=== PATIENT | male | born 1960 | race Asian ===

== ENCOUNTER 2020-10-10 10:53 | Outpatient (RCR) | payer BC, SELFPAY ==
[2020-10-10 11:05] VITALS: BMI 19.7
[2020-10-10 11:12] VITALS: BMI 19.7
== END 2020-12-26 09:16 | disposition home or self-care (01) ==
LOC: ANHDMC 10:53
PROVIDERS: PCP Physician Assistant; Referring Provider Physician Assistant; Visit Provider Physician Assistant
DX: R63.4 Abnormal weight loss (principal); F41.9 Anxiety disorder, unspecified; Z71.3 Dietary counseling and surveillance
CPT/HCPCS: 97802

== ENCOUNTER 2022-07-08 07:36 | Outpatient (CLI) | payer BC, SELFPAY ==
--- NOTE | 2022-07-08 07:44 | ECHO_ITS ---
Patient Info Name: Helen Hill Age: 61 years : 1960 Gender: Male Ht: 68 in Wt: 130 lbs BSA: 1.68 m2 HR: 73 bpm BP: 163 / 100 mmHg Technical Quality: Fair Exam Date: 07/08/2022 7:58 AM Exam Location: [facility] Patient Status: Outpatient Admit Date: 07/08/2022 Staff Ordering Physician: Rambo Coffman MD Compatibility Test Engineer: Hillary Hercules RDCS Attending Provider: Rambo Coffman MD Referring Physician: Meghna STALLINGS; Exam Type: CA echo doppler color flow Study Info Indications R01.0 - Benign and innocent cardiac murmurs Complete two-dimensional, color flow and Doppler transthoracic echocardiogram is performed. Summary 1. Complete two-dimensional, color flow and Doppler transthoracic echocardiogram is performed. 2. Left ventricular chamber dimension is mildly enlarged. 3. Left ventricular systolic function is moderately reduced, estimated at 40-45%. 4. The left ventricular diastolic function is grade I diastolic dysfunction. 5. E/e' 11 is mildly elevated. 6. Global longitudinal strain is abnormal at -11.9%. 7. Left atrial chamber dimension is moderately enlarged. 8. There is mild aortic valve sclerosis. 9. No pulmonary hypertension, estimated pulmonary arterial systolic pressure is 30 mmHg. Left Ventricle E/e' 11 is mildly elevated. Global longitudinal strain is abnormal at -11.9%. Left ventricular chamber dimension is mildly enlarged. Left ventricular systolic function is moderately reduced, estimated at 40-45%. The left ventricular diastolic function is grade I diastolic dysfunction. Right Ventricle Right ventricular chamber dimension is normal. Right ventricular systolic function is normal. Left Atria Left atrial chamber dimension is moderately enlarged. Right Atria Right atrial chamber dimension is normal. Aortic Valve The aortic valve is trileaflet. There is mild aortic valve sclerosis. There is no aortic valve stenosis. There is no aortic valve regurgitation. Pulmonic Valve There is no pulmonic regurgitation. Mitral Valve There is no mitral valve stenosis. There is no mitral valve regurgitation. Tricuspid Valve There is no tricuspid valve regurgitation. No pulmonary hypertension, estimated pulmonary arterial systolic pressure is 30 mmHg. Pericardium/Pleural There is no pericardial effusion. Inferior Vena Cava Normal inferior vena cava with >50% collapse upon inspiration consistent with normal right atrial pressure, 5 mmHg. Aorta The aortic root size at the sinus of Valsalva is normal. Left Ventricular Outflow Tract Name Value Normal LVOT 2D LVOT Diameter 2.0 cm LVOT Doppler LVOT Peak Gradient 4 mmHg LVOT Mean Gradient 2 mmHg LVOT VTI 19 cm LVOT VTI/AV VTI Ratio 0.8 LVOT Stroke Volume 57 ml LVOT CO 4.7 l/min LVOT CI 2.8 l/min/m2 Pulmonic Valve
== END 2022-07-08 07:37 | disposition home or self-care (01) ==
PROVIDERS: PCP Family Medicine; Visit Provider Family Medicine
DX: R01.1 Cardiac murmur, unspecified (principal)
CPT/HCPCS: 93306

== ENCOUNTER 2023-06-18 02:00 | Day surgery (SDC) | payer BC, SELFPAY ==
[2023-05-22 12:15] VITALS: BMI 21.2
--- NOTE | 2023-06-16 12:21 | SUR.PREOP ---
Patient called regarding upcoming procedure. Reviewed preop instructions, appointment times, and procedure prep.
--- NOTE | 2023-06-17 14:56 | PM.HPGS ---
History of Present Illness History of Present Illness Consent: Risks, benefits, and alternatives have been discussed and questions answered. Patient agrees to proceed with procedure. Chief complaint: hx of colon ca,hx colon polyps, Narrative: Helen Hill is a 62 year old male Who was referred for colon cancer screening. His last colonoscopy was just over 5 years ago. He has a history of having carcinoma of the colon for which he has had a right colectomy Almost 20 years ago. Review of Systems Review of Systems: All systems reviewed & are unremarkable except as noted in HPI and below PMFSH Past Medical History Medical History Abnormal fasting glucose (03/27/22) fasting glucose 105 on 03/27/2022. Fasting glucose 93 with hemoglobin A1c 5.4 on 09/04/2022. fasting glucose 96 with hemoglobin A1c 5.5 on 04/23/2023. Abnormal serum iron level (03/27/22) iron 187 with 61% saturation and ferritin 52 03/27/2022 with hemoglobin 13.8. Iron normal at 72 with 22% saturation and ferritin 37 with hemoglobin 13.4 on 09/04/2022. Iron 60 with 19% saturation and ferritin 43 with hemoglobin 14.0 on 04/23/2023. BMI 20.0-20.9, adult Body mass index (BMI) less than or equal to 19 in adult Encounter for medical examination to establish care Hemorrhoids History of colon cancer Right hemicolectomy 10/05/2007. colonoscopy 2018 with polyp with recheck in [address] Sampson. Newly recognized murmur (04/03/22) Grade 2/6 LOUISE with click. Echocardiogram with no significant valvular problems on 07/08/2022 with decreased systolic function with ejection fraction of 40-45% and grade 1 diastolic dysfunction with mild left ventricular enlargement and moderate left atrial enlargement. Prostate cancer screening PSA 1.07 on 03/27/2022. PSA 1.02 on 04/23/2023. Seasonal allergies Tinea cruris Vitamin D deficiency Wellness examination Surgical History Surgical History History of colonoscopy 2006 History of colonoscopy with polypectomy colonoscopy with polyp 2018. Family History Family History Mother Cerebrovascular accident Father Carcinoma of colon Social History Social History Smoking status: Never smoker Alcohol intake: current Drinks per week: 2 Alcohol use details: Beer - Occasionally Substance use: never Substance use type: does not use Lack of Transportation: No Lack of Food: Never True Current Housing: I Have Housing Concerned About Future Housing: No Difficulty Paying Gas/Electric Bills: No Difficulty Paying for Meds: No Currently Unemployed: No Education: Trade/Vocational Certificate Difficulty w/ Childcare or Family Care: No Living arrangements: with family Spiritual care concerns: No Meds Home Medications and Allergies Home Medications Medication Instructions Recorded Confirmed Type cholecalciferol (vitamin D3) 50 4,000 unit PO DAILY 04/03/22 06/18/23 History mcg (2,000 unit) capsule hydrocortisone 2.5 % topical cream 1 applic RECTAL BID PRN 04/15/23 06/18/23 Rx with perineal applicator hemorrhoids #30 grams (Anusol-HC) Allergies Allergy/AdvReac Type Severity Reaction Status Date / Time No Known Allergies Allergy Verified 06/18/23 07:00 Exam Resp: Auscultation: clear to auscultation bilaterally Cardio: Rate: regular rate Rhythm: regular rhythm GI: GI Palp: Yes Soft to palpation and No Tenderness to palpation present (GI) Assessment and Plan Assessment and plan (1) History of colon cancer: Code(s): Z85.038 - Personal history of other malignant neoplasm of large intestine Status: Acute Assessment and Plan: Colonoscopy with possible biopsy or polypectomy or cautery or injection of substances.
[2023-06-18 07:01] VITALS: BP 108/70; PULSE 76; RESP 16; TEMP 35.8; O2SAT 100; BMI 19.3
[2023-06-18] MEDS: LACTATED RINGERS 1,000 ML 150 ML IV CONT (07:08)
--- NOTE | 2023-06-18 08:09 | WPDANESEPPF ---
Anes - Initial Pre Proc Eval Procedure: Operation Date: 06/18/23 08:30 Proposed Procedures p Colonoscopy - Nas Mcelroy MD Date/Time: 06/18/23 08:09 Surgeon: Nas Mcelroy MD Pre Op Diagnosis: hx of colon ca,hx colon polyps, Patient Data Age: 62 Gender: M Height: 1.7 m Weight: 55.8 kg Last Vital Signs Temp 96.5 F L 06/18/23 07:01 Pulse 76 06/18/23 07:01 Resp 16 06/18/23 07:01 BP 108/70 06/18/23 07:01 Pulse Ox 100 06/18/23 07:01 O2 Del Method Room Air 06/18/23 07:01 Allergies Allergy/AdvReac Type Severity Reaction Status Date / Time No Known Allergies Allergy Verified 06/18/23 07:00 Home Medications Medication Instructions Recorded Confirmed Type cholecalciferol (vitamin D3) 50 4,000 unit PO DAILY 04/03/22 06/18/23 History mcg (2,000 unit) capsule hydrocortisone 2.5 % topical cream 1 applic RECTAL BID PRN 04/15/23 06/18/23 Rx with perineal applicator hemorrhoids #30 grams (Anusol-HC) Patient hx anesthesia problems: none Family hx anesthesia problems: none Results Review: All pre-operative results and documents have been reviewed as part of the pre-operative evaluation. [facility] Past Medical History Medical History Abnormal fasting glucose (03/27/22) fasting glucose 105 on 03/27/2022. Fasting glucose 93 with hemoglobin A1c 5.4 on 09/04/2022. fasting glucose 96 with hemoglobin A1c 5.5 on 04/23/2023. Abnormal serum iron level (03/27/22) iron 187 with 61% saturation and ferritin 52 03/27/2022 with hemoglobin 13.8. Iron normal at 72 with 22% saturation and ferritin 37 with hemoglobin 13.4 on 09/04/2022. Iron 60 with 19% saturation and ferritin 43 with hemoglobin 14.0 on 04/23/2023. BMI 20.0-20.9, adult Body mass index (BMI) less than or equal to 19 in adult Encounter for medical examination to establish care Hemorrhoids History of colon cancer Right hemicolectomy 10/05/2007. colonoscopy 2018 with polyp with recheck in [address] Sampson. Newly recognized murmur (04/03/22) Grade 2/6 LOUISE with click. Echocardiogram with no significant valvular problems on 07/08/2022 with decreased systolic function with ejection fraction of 40-45% and grade 1 diastolic dysfunction with mild left ventricular enlargement and moderate left atrial enlargement. Prostate cancer screening PSA 1.07 on 03/27/2022. PSA 1.02 on 04/23/2023. Seasonal allergies Tinea cruris Vitamin D deficiency Wellness examination Surgical History Surgical History History of colonoscopy 2006 History of colonoscopy with polypectomy colonoscopy with polyp 2018. Family History Family History Mother Cerebrovascular accident Father Carcinoma of colon Social History Social History Smoking status: Never smoker Alcohol intake: current Drinks per week: 2 Alcohol use details: Beer - Occasionally Substance use: never Substance use type: does not use Lack of Transportation: No Lack of Food: Never True Current Housing: I Have Housing Concerned About Future Housing: No Difficulty Paying Gas/Electric Bills: No Difficulty Paying for Meds: No Currently Unemployed: No Education: Trade/Vocational Certificate Difficulty w/ Childcare or Family Care: No Living arrangements: with family Spiritual care concerns: No Anes - Eval Final PreProcedure Day of Procedure 06/18/23 08:09 Patient weight: normal Heart: regular rate and rhythm Lungs: clear to auscultation Airway: Mallampati scale class II Neurological: alert and oriented Last oral intake: >/= 8 hours ASA classification: III Emergent: no Anesthetic plan: proceed Anesthesia type and monitoring: general GIVS and standard monitoring Results Review: All pre-operative results
[2023-06-18 08:39] VITALS: BP 102/50; PULSE 60; RESP 19; O2SAT 99
[2023-06-18 08:49] VITALS: BP 100/84; PULSE 61; RESP 26; O2SAT 100
[2023-06-18 08:59] VITALS: BP 77/53; PULSE 64; RESP 18; O2SAT 100
[2023-06-18 09:09] VITALS: BP 99/62; PULSE 60; RESP 19; O2SAT 100
== END 2023-06-18 09:13 | disposition home or self-care (01) ==
PROVIDERS: PCP Family Medicine; Visit Provider Internal Medicine Gastroenterology
PROC: 0DJD8ZZ Inspection of Lower Intestinal Tract, Via Natural or Artificial Opening Endoscopic (ICD-10-PCS; CPT 45378; principal; 2023-06-18 08:30)
DX: Z12.11 Encounter for screening for malignant neoplasm of colon (principal); K64.8 Other hemorrhoids; Z85.038 Personal history of other malignant neoplasm of large intestine; Z98.0 Intestinal bypass and anastomosis status; Z90.49 Acquired absence of other specified parts of digestive tract
CPT/HCPCS: 45378; J2371; J2704; J7120

== ENCOUNTER 2024-08-27 19:54 | Inpatient (IN) | payer OTHER, SELFPAY ==
[2024-08-27] VITALS (13 sets, daily range): BP systolic 134–185; BP diastolic 93–143; PULSE 101–113; RESP 16–24; TEMP 36.2; O2SAT 93–98
--- NOTE | ~2024-08-27 | XR_ITS ---
EXAMINATION: XR chest 1V portable DATE: 08/30/2024 06:08 INDICATION: Pleural effusion. TECHNIQUE: A single frontal view of the chest was obtained. COMPARISON: Chest CT 08/27/2024 FINDINGS: There is mild scarring at the lung apices. A calcified right lung nodule is consistent with old granulomatous disease. There is a small right pleural effusion. No pneumothorax. Cardiomegaly is noted. IMPRESSION: 1. Small right pleural effusion. 2. Cardiomegaly. Reviewed, dictated and finalized at location A.
--- NOTE | ~2024-08-27 | CT_ITS ---
EXAMINATION: CTA chest PE protocol DATE: 08/27/2024 21:27 CDT INDICATION: Shortness of breath TECHNIQUE: Computed tomographic angiography (CTA) of the chest was performed with 100 mL Omnipaque-35 0 intravenous contrast. The dose-length product was 211.11 mGy-cm. Maximum intensity projection 3D-re constructions of the aorta and other arteries were constructed by the technologist on a separate work station. COMPARISON: None. FINDINGS/OBSERVATIONS: PULMONARY ARTERIES: No filling defect is identified within the main or proximal pulmonary artery. The main pulmonary artery is significantly enlarged. THORACIC AORTA: No aneurysmal dilatation or dissection is present. The great vessels are intact LUNGS: Large right-sided pleural effusion with patchy opacification of the entirety of the left lower lobe and portions of the left upper lobe consistent with pulmonary vascular congestion. MEDIASTINUM: No morphologically suspicious or pathologically enlarged lymph nodes are identified with in the mediastinum or bilateral axilla. BONES OF THE CHEST: No acute fracture. No significant degenerative disease. No lytic or blastic lesions. HEART: The heart is enlarged, without pericardial effusion. IMPRESSION: No pulmonary embolus. No thoracic aortic dissection. Findings consistent with pulmonary hypertension Large right-sided pleural effusion encompassing nearly the entirety of the right hemithorax. Remaining pulmonary parenchyma demonstrates findings with significant pulmonary edema. Reviewed, dictated and finalized at location A. IMPRESSION: No pulmonary embolus. No thoracic aortic dissection. Findings consistent with pulmonary hypertension Large right-sided pleural effusion encompassing nearly the entirety of the righ t hemithorax. Remaining pulmonary parenchyma demonstrates findings with significant pulmonary edema.
--- OUTSIDE RECORDS SUMMARY | 2024-08-27 19:57 | XMS_ITS | Clinical Summary ---
Author Organization [facility] Address [address] [place] [address] Care Team Providers Care Audit Specialist Name Role Phone Rambo Coffman MD Primary Care Provider [phone] Source Comments [facility],non-owned Affiliates and Associated Physician Practices is amultiple site organization consisting of ambulatory clinics and hospital sitesin [place] and [place]. This disclosure is being madepursuant to the Care Everywhere program and may not contain all information available regarding this patient. Last updated 18.[facility] Allergies No known active allergies Medications * Be aware that medications may not be up to date on this document. Alwaysverify current medications with the patient. Medication Sig Dispensed Refills Start Date End Date Status acetaminophen (TYLENOL) 325 MG tablet Take 325 mg by mouth every 4 hours as needed. Maximum allowable Acetaminophen amount = 4 Grams (4000 mg) / 24 hours. Active Loratadine-Pseudoep hedrine (CLARITIN-D 24 HOUR PO) Take 1 Tab by mouth. Act vick econazole nitrate (SPECTAZOLE) 1 % cream Apply to affected area as needed 5 08/20/2016 Active bisacodyl EC (DULCOLAX) 5 MG tabletIndications:S creen for colon cancer,History of colon cancer Take 2 Tabs by mouth as directed for 1 dose 2 Tab 10/13/2016 Active Active Problems Problem Noted Date Diagnosed Date History of colon cancer 08/03/2013 Family History Medical History Relation Name Comments Non-contributory Mother Relation Name Status Comments Brother 2 Brothers Alive Father Mother Alive Sister 4 Sisters Alive Social History Tobacco Use Types Packs/Day Years Used Date Smoking Tobacco: Never Alcohol Use Standard Drinks/Week Comments Yes 0 (1 standard drink = 0.6 oz pur e alcohol) Occassional, socially Sex and Gender Information Value Date Recorded Sex Assigned at Not on file Gender Identity Not on file Sexual Orientation Not on file Last Filed Vital Signs Vital Sign Reading Time Taken Comments Blood Pressure 131/68 10/11/2016 1:56 PM CDT Pulse 73 10/11/2016 1:56 PM CDT Temperature 36.3 C (97.4 F) 10/11/2016 1:56 PM CDT Respiratory Rate 16 08/08/2010 12:2 8 PM 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 [employer] Oxygen Saturation - - Inhaled Oxygen Concentration - - Weight 61.6 kg (135 lb 12.8 oz) 10/11/2016 1:56 PM CDT Height 172.7 cm (5' 8 ) 10/11/2016 1:56 PM CDT Body Mass Index 20.65 10/11/2016 1:56 PM CDT Plan of Treatment Health Maintenance Due Date Last Done Comments COLOGUARD (AGES 45-75) - COL ON CA SCREENING 1960 COLON MONITORING 1960 COLONOSCOPY - COLON CA SCREENING 1960 CT COLONOGRAPHY - COLON CA SCREENING 1960 Colorectal Cancer Screening 1960 FIT - COLON CA SCREENING 1960 FLEX SIG - COLON CA SCREENING 1960 LIPID TESTING 1960 HIV SCREENING 1976 HEPATITIS C SCREENING 08/25/1979 DTAP/TDAP/TD VACCINES (1 - Tdap) 1980 PNEUMOCOCCAL VACCINE 50+ (1 of 1 - PCV) 08/30/2011 ZOSTER VACCINE (1 of 2) 08/30/2011 COVID-19 VACCINE ( - 2023-2 5 season) 2024 INFLUENZA VACCINE (#1) 2024 DEPRESSION SCREENING 06/09/2024 Respiratory Syncytial Virus (RSV) Vaccine Pt: or over 60 yrs (1 - 1-dose 75+ series) 2036 HEPATITIS B VACCINE Aged Out No longe r eligible based on patient's age to complete this topic HIB VACCINE Aged Out No longer eligi ble based on patient's age to complete this topic HPV VACCINE Aged Out No longer eligi ble based on patient's age to complete this topic MENINGOCOCCAL (Group B) VACC INE SHARED DECISION-MAKING Aged Out No longer eligibl e based on patient's age to complete this topic MENINGOCOCCAL GROUPS A/C/Y/W VACCINE Aged Out No longer eligible b ased on patient's age to complete this topic PNEUMOCOCCAL VACCINE Aged Out No long er eligible based on patient's age to complete this topic Care Teams Audit Specialist Relationship Specialty Start Date End Date Rambo Coffman MD PCP - General Family Medicine 10/11/16
--- NOTE | 2024-08-27 20:22 | ECG_ITS ---
Test Date: 2024-08-27 20:55:08 Measurements Intervals [place] Rate: 104 P: 66 SC: 154 QRS: 73 QRSD: 93 T: 113 QT: 354 QTc: 467 Interpretive Statements SINUS TACHYCARDIA LEFT ATRIAL ENLARGEMENT [-0.15mV P-WAVE IN V1/V2] LEFT VENTRICULAR HYPERTROPHY AND ST-T CHANGE [VOLTAGE CRITERIA PLUS ST/T ABNORMALITY] No previous ECG available for comparison Electronically Signed On 08-28-2024 17:31:31 CDT by Jacqueline Mabry M.D.
--- OUTSIDE RECORDS SUMMARY | 2024-08-27 20:29 | XMS_ITS | Clinical Summary ---
Author Organization [facility] Address [address] [place] [address] Care Team Providers Care Relief Charge Nurse Name Role Phone Rambo Coffman MD Primary Care Provider [phone] Source Comments [facility],non-owned Affiliates and Associated Physician Practices is amultiple site organization consisting of ambulatory clinics and hospital sitesin [place], [place], [place] and [place]. This disclosure is being madepursuant to the Care Everywhere program and may not contain all information available regarding this patient. 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
[2024-08-27 20:43] LABS: Basophils Absolute Auto 0.1 K/mm3 (0.0-0.1); Basophils Percent Auto 0.7 % (0.2-1.2); Eosinophils Absolute Auto 0.5 K/mm3 (0-0.3); Eosinophils Percent Auto 6.6 % (0-4.4); Hematocrit 42.3 % (42.0-52.0); Hemoglobin 13.6 g/dL (14.0-18.0); Immature Granulocyte Absolute 0.01 K/mm3 (0.00-0.031); Immature Granulocyte Percent A 0.1 % (0-0.5); Lymphocytes Absolute Auto 1.16 K/mm3 (0.9-3.2); Lymphocytes Percent Auto 15.9 % (18.3-44.2); Mean Corpuscular HGB Conc 32.2 g/dl (32-36); Mean Corpuscular Hemoglobin 29.4 pg (26-34); Mean Corpuscular Volume 91.6 fl (80-100); Mean Platelet Volume 10.5 fl (7.4-10.4); Monocytes Absolute Auto 0.6 K/mm3 (0.1-0.6); Monocytes Percent Auto 8.5 % (2.6-8.5); Neutrophils Percent Auto 68.2 % (45.5-73.1); Platelet Count Result 216 k/mm3 (150-375); Red Blood Count 4.62 M/mm3 (4.6-6.20); Red Cell Distribution Width 14.2 % (11.5-14.5); White Blood Count 7.3 K/mm3 (4.5-10.0)
[2024-08-27 20:52] LABS: Lactic Acid Reflex 1.1 mmol/L (0.7-2.0)
[2024-08-27 20:53] LABS: Alanine Aminotransferase 41 U/L (6-50); Alkaline Phosphatase 77 U/L (38-126); Anion Gap 8 mmol/L (4-12); Aspartate Amino Transferase 41 U/L (17-59); Bilirubin,Total 0.7 mg/dL (0.2-1.3); Blood Urea Nitrogen 22 mg/dL (9-20); Carbon Dioxide 27 mmol/L (22-30); Chloride 103 mmol/L (98-107); Estimated CRCL calculation 51 ml/min; Estimated Glomerular Filt Rate > 60; Glucose 102 mg/dL (65-110); Lipase 308 U/L (23-300); Potassium 4.3 mmol/L (3.4-5.0); Sodium 138 mmol/L (137-145)
[2024-08-27 20:59] LABS: INR 1.1; Prothrombin Time 14.1 Seconds (11.1-14.7)
[2024-08-27 21:00] LABS: Partial Thromboplastin Time 37.5 Seconds (22.3-36.8)
[2024-08-27 21:06] LABS: NT Pro B Type Natriuretic Pept 3520 pg/mL (19.9-100); Troponin I 0.037 ng/mL (0.000-0.034)
[2024-08-27 21:19] LABS: Influenza A QL RT-PCR Negative (Negative); Influenza B QL RT-PCR Negative (Negative); RSV RNA, RT-PCR Negative (Negative); SARS-CoV-2 RNA PCR Negative (Negative)
[2024-08-27 22:37] LABS: Add Urine Microscopic? NO; Appearance Urine Clear (Clear); Bilirubin Urine Negative (Negative); Blood Urine Negative (Negative); Color Urine Yellow (Yellow); Glucose Urine UA Negative (Negative); Ketones Urine 1+ mg/dL (Negative); Leukocyte Esterase Ur Negative LEU/UL (Negative); Nitrate Urine Negative (Negative); Protein Urine Negative (Negative); Specific Grav Ur > 1.045 (1.001-1.035); Urobilinogen Urine 0.2 mg/dL (<2.0); pH Urine 5.5 (5.0-9.0)
--- NOTE | 2024-08-27 22:44 | ED.GENADULT ---
HPI - General Adult General Chief complaint: Shortness of Breath/Dyspnea Stated complaint: From UC with cough, R Pleural Effusion Time Seen by Provider: 08/27/24 20:12 History of Present Illness HPI narrative: Patient is a 7-year-old gentleman presents emergency department with chief complaint of cough congestion patient has been having a hard time breathing patient has prior history of colon cancer also does have history of congestive heart failure the patient had a chest x-ray that showed a pleural effusion and they were unsure if EKG was abnormal and sent the patient emergency department Related Data Home Medications ?Medication ?Instructions ?Recorded ?Confirmed ?Last Taken ?Type cholecalciferol (vitamin D3) 50 4,000 unit PO DAILY 04/03/22 06/18/23 Unknown History mcg (2,000 unit) capsule Allergies Allergy/AdvReac Type Severity Reaction Status Date / Time No Known Allergies Allergy Verified 08/27/24 19:56 Review of Systems Review of Systems: A 10 system review of systems was completed on the patient and is negative except for what is stated in the HPI. Nursing and ancillary documentation was reviewed. [facility] Past Medical History Medical History Hemorrhoids Body mass index (BMI) less than or equal to 19 in adult Tinea cruris Abnormal fasting glucose (03/27/22) fasting glucose 105 on 03/27/2022. Fasting glucose 93 with hemoglobin A1c 5.4 on 09/04/2022. fasting glucose 96 with hemoglobin A1c 5.5 on 04/23/2023. Abnormal serum iron level (03/27/22) iron 187 with 61% saturation and ferritin 52 03/27/2022 with hemoglobin 13.8. Iron normal at 72 with 22% saturation and ferritin 37 with hemoglobin 13.4 on 09/04/2022. Iron 60 with 19% saturation and ferritin 43 with hemoglobin 14.0 on 04/23/2023. Newly recognized murmur (04/03/22) Grade 2/6 LOUISE with click. Echocardiogram with no significant valvular problems on 07/08/2022 with decreased systolic function with ejection fraction of 40-45% and grade 1 diastolic dysfunction with mild left ventricular enlargement and moderate left atrial enlargement. BMI 20.0-20.9, adult Encounter for medical examination to establish care Prostate cancer screening PSA 1.07 on 03/27/2022. PSA 1.02 on 04/23/2023. History of colon cancer Right hemicolectomy 10/05/2007. colonoscopy 2018 with polyp with recheck in [address] Sampson. colonoscopy 06/18/2023 with ileocecal anastomosis and internal hemorrhoids with recheck in 5 years Vitamin D deficiency Seasonal allergies Wellness examination Surgical History Surgical History History of colonoscopy with polypectomy colonoscopy with polyp 2018. History of colonoscopy 2006 Family History Family History Mother Cerebrovascular accident Father Carcinoma of colon Social History Social History Smoking status: Never smoker Alcohol intake: current Drinks per week: 2 Alcohol use details: Beer - Occasionally Substance use: never Substance use type: does not use Lack of Transportation: No Lack of Food: Never True Current Housing: I Have Housing Concerned About Future Housing: No Difficulty Paying Gas/Electric Bills: No Difficulty Paying for Meds: No Currently Unemployed: No Education: Trade/Vocational Certificate Difficulty w/ Childcare or Family Care: No Living arrangements: with family Spiritual care concerns: No Exam Narrative: GENERAL: Well-appearing, well-nourished, and in no acute distress. HEAD: Normocephalic, atraumatic. EYES: PERRLA and EOMI. ENT: Nares clear, no rhinorrhea or epistaxis. Mucous membranes moist. NECK: Supple. CHEST: Clear to auscultation. No respiratory distress. HEART: Regular rate and rhythm. No murmur heard. Normal peripheral pulses. ABDOMEN: Soft, nontender, nondistended, normal active bowel sounds. EXTREMITIES: Normal range of motion. No edema. SKIN: Warm, dry, no rash. NEURO: No focal deficits. Alert and oriented x3. PSYCH: Normal mood and affect. Course Vital Signs Vital signs: Vital Signs Temperature 36.2 C L 08/27/24 19:57 Pulse Rate 104 H 08/27/24 19:57 Respiratory Rate 16 08/27/24 19:57 Blood Pressure 134/100 H 08/27/24 19:57 Pulse Oximetry 97 08/27/24 19:57 Oxygen Delivery Room Air 08/27/24 19:57 Temperature 36.2 C L 08/27/24 19:57 Pulse Rate 104 H 08/27/24 19:57 Respiratory Rate 16 08/27/24 19:57 Blood Pressure 134/100 H 08/27/24 19:57 Pulse Oximetry 97 08/27/24 21:00 Oxygen Delivery Room Air 08/27/24 21:00 Medical Decision Making MDM Narrative Medical decision making narrative: Differential diagnosis includes pneumonia, CHF, fluid overload, pleural effusion, ACS EKG showed no acute ischemic changes initial troponin was slightly elevated BNP was [address] showed no evidence of PE but did show a large pleural effusion and infiltrates patient will be started on antibiotics started on diuresis and will be admitted to the IMU Vital Signs Vital Signs: Vital Signs Temperature 36.2 C L 08/27/24 19:57 Pulse Rate 104 H 08/27/24 19:57 Respiratory Rate 16 08/27/24 19:57 Blood Pressure 134/100 H 08/27/24 19:57 Pulse Oximetry 97 08/27/24 19:57 Oxygen Delivery Room Air 08/27/24 19:57 Temperature 36.2 C L 08/27/24 19:57 Pulse Rate 104 H 08/27/24 19:57 Respiratory Rate 16 08/27/24 19:57 Blood Pressure 134/100 H 08/27/24 19:57 Pulse Oximetry 97 08/27/24 21:00 Oxygen Delivery Room Air 08/27/24 21:00 Lab Data 08/27/24 20:36 08/27/24 20:36 Labs: Lab Results 08/27/24 08/27/24 Range/Units 20:36 22:27 WBC 7.3 (4.5-10.0) K/mm3 RBC 4.62 (4.6-6.20) M/mm3 Hgb 13.6 L (14.0-18.0) g/dL Hct 42.3 (42.0-52.0) % MCV 91.6 (80-100) fl MCH 29.4 (26-34) pg MCHC 32.2 (32-36) g/dl RDW 14.2 (11.5-14.5) % Plt Count 216 (150-375) k/mm3 MPV 10.5 H (7.4-10.4) fl Immature Gran % (Auto) 0.1 (0-0.5) % Neut % (Auto) 68.2 (45.5-73.1) % Lymph % (Auto) 15.9 L (18.3-44.2) % [place] % (Auto) 8.5 (2.6-8.5) % Eos % (Auto) 6.6 H (0-4.4) % Baso % (Auto) 0.7 (0.2-1.2) % Lymph # (Auto) 1.16 (0.9-3.2) K/mm3 [place] # (Auto) 0.6 (0.1-0.6) K/mm3 Eos # (Auto) 0.5 H (0-0.3) K/mm3 Baso # (Auto) 0.1 (0.0-0.1) K/mm3 Abs Immat Gran (auto) 0.01 (0.00-0.031) K/mm3 Absolute Neuts (auto) 5.0 (1.3-6.7) K/mm3 Absolute Nucleated RBC 0.000 (0.0-0.012) K/mm3 Nucleated RBC % 0.0 (0.0-0.2) % PT 14.1 (11.1-14.7) Seconds INR 1.1 APTT 37.5 H (22.3-36.8) Seconds Sodium 138 (137-145) mmol/L Potassium 4.3 (3.4-5.0) mmol/L Chloride 103 (98-107) mmol/L Carbon Dioxide 27 (22-30) mmol/L Anion Gap 8 (4-12) mmol/L BUN 22 H (9-20) mg/dL Creatinine 1.06 (0.7-1.3) mg/dL Estim Creat Clear Calc 51 ml/min Estimated GFR > 60 (59 - ) Glucose 102 (65-110) mg/dL Lactic Acid 1.1 (0.7-2.0) mmol/L Calcium 9.0 (8.4-10.2) mg/dL Magnesium 2.0 (1.6-2.3) mg/dL Total Bilirubin 0.7 (0.2-1.3) mg/dL AST 41 (17-59) U/L ALT 41 (6-50) U/L Alkaline Phosphatase 77 (38-126) U/L Troponin I 0.037 H* (0.000-0.034) ng/mL NT-Pro-B Natriuret Pep 3520 H (19.9-100) pg/mL Total Protein 8.0 (6.3-8.2) g/dL Albumin 4.0 (3.5-5.1) g/dL Lipase 308 H (23-300) U/L Procalcitonin 0.0 ng/mL Urine Color Pending Urine Appearance Pending Urine pH Pending Ur Specific [place] Pending Urine Protein Pending Urine Glucose (UA) Pending Urine Ketones Pending Ur Blood (Man) Pending Urine Nitrate Pending Urine Bilirubin Pending Urine Urobilinogen Pending Leukocyte Esterase Rfl Pending Influenza A (RT-PCR) Negative (Negative) Influenza B (RT-PCR) Negative (Negative) RSV (RT-PCR) Negative (Negative) SARS-CoV-2 RNA (RT-PCR) Negative (Negative) Discharge Plan Discharge Clinical Impression: Pneumonia, Pleural effusion, Elevated troponin Patient Disposition: Still a Patient Condition: Stable Patient Language: [place] Prescriptions: No Action cholecalciferol (vitamin D3) 50 mcg (2,000 unit) capsule 4,000 unit PO DAILY hydrocortisone [Anusol-HC] 2.5 % cream with perineal applicator 1 applic RECTAL BID PRN (Reason: hemorrhoids) Qty: 30 5RF Follow-up/Referrals: Rambo Coffman MD [Primary Care Provider] - Time of Disposition: 22:47
[2024-08-27 23:52] LABS: Troponin I 0.037 ng/mL (0.000-0.034)
[2024-08-28] VITALS (21 sets, daily range): BP systolic 98–152; BP diastolic 50–94; PULSE 68–103; RESP 14–18; TEMP 36.4–36.8; O2SAT 94–100; BMI 19.0
--- NOTE | 2024-08-28 00:29 | ADMGEN ---
This patient, Helen Hill, was admitted to IMU Room 201-01. Patient/family oriented to hospital policies and general routines including ID bracelet, bed and alarms, visiting hours, pain management, procedures, bathroom and other care routines, personal items, smoking policy, room service/diet, and visiting hours. Information on how to activate the Rapid Response Team has been discussed. Patient/Family are encouraged to report perceived risks to care and to ask questions if they do not understand what they are told or what they should do.
--- NOTE | 2024-08-28 00:30 | PM.IMHP ---
H&P: HPI History of Present Illness Date/Time: 08/28/24 00:30 Chief Complaint: Shortness of breath. Narrative: This is a very pleasant 63-year-old male with a history of heart failure with moderately reduced ejection fraction estimated at 40 45% with grade 1 diastolic dysfunction noted on echocardiogram in June 2022 and remote history of colon cancer who presented to the emergency department via private vehicle from urgent care for evaluation of shortness of breath. 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 He also endorses a cough which is occasionally productive of yellow phlegm, rare palpitations, and mild orthopnea. He has not noticed any swelling and in fact he has lost some weight. Today he went to urgent care where he was found to have a large right-sided pleural effusion and he was directed to the ED. He denies fever, chills, sweats, chest pain, pleuritic pain, lower extremity edema, calf pain, nausea, and vomiting. In the ED: Vital signs on arrival include a temperature of 97.2?, blood pressure 134/100, pulse 104, respiratory 16, SpO2 97% on room air. Labs were significant for WBC count of 7.3, hemoglobin 13.6, BUN 22, creatinine 1.06, troponin 0.037, proBNP 3520, lipase 308. He tested negative negative for flu, RSV, and COVID. Chest CTA was negative for pulmonary embolus and dissection but did show findings consistent with pulmonary hypertension and large right-sided pleural effusion with pulmonary edema. He has been started on diuretics and is being admitted in this setting for further treatment and Cardiology consultation. Review of Systems Review of Systems: 12 systems were reviewed and are negative except for as per HPI. [facility] Past Medical History Medical History Hemorrhoids Body mass index (BMI) less than or equal to 19 in adult Abnormal fasting glucose (03/27/22) fasting glucose 105 on 03/27/2022. Fasting glucose 93 with hemoglobin A1c 5.4 on 09/04/2022. fasting glucose 96 with hemoglobin A1c 5.5 on 04/23/2023. Abnormal serum iron level (03/27/22) iron 187 with 61% saturation and ferritin 52 03/27/2022 with hemoglobin 13.8. Iron normal at 72 with 22% saturation and ferritin 37 with hemoglobin 13.4 on 09/04/2022. Iron 60 with 19% saturation and ferritin 43 with hemoglobin 14.0 on 04/23/2023. Newly recognized murmur (04/03/22) Grade 2/6 LOUISE with click. Echocardiogram with no significant valvular problems on 07/08/2022 with decreased systolic function with ejection fraction of 40-45% and grade 1 diastolic dysfunction with mild left ventricular enlargement and moderate left atrial enlargement. Prostate cancer screening PSA 1.07 on 03/27/2022. PSA 1.02 on 04/23/2023. History of colon cancer Right hemicolectomy 10/05/2007. colonoscopy 2018 with polyp with recheck in [address] Sampson. colonoscopy 06/18/2023 with ileocecal anastomosis and internal hemorrhoids with recheck in 5 years Vitamin D deficiency Seasonal allergies Surgical History Surgical History History of colectomy (09/2007) Right hemicolectomy for colon cancer History of colonoscopy with polypectomy colonoscopy with polyp 2018. History of colonoscopy 2006 Family History Family History Mother Cerebrovascular accident Father Carcinoma of colon Social History Social History Social History: Surrogate medical decision maker: Sandy Hernándezfarzana, spouse. Code status: Full code. Smoking status: Never smoker Alcohol intake: unknown Drinks per week: 2 Alcohol use details: Beer - Occasionally Substance use: unknown Substance use type: does not use Do You Feel Safe in your Home?: Yes Lack of Transportation: No Lack of Food: Never True Current Housing: I Have Housing Concerned About Future Housing: No Difficulty Paying Gas/Electric Bills: No Difficulty Paying for Meds: No Currently Unemployed: No Education: Trade/Vocational Certificate Difficulty w/ Childcare or Family Care: No Living arrangements: with family Spiritual care concerns: No Meds Home Medications and Allergies Home Medications ?Medication ?Instructions ?Recorded ?Confirmed ?Type No Home Medications 08/28/24 08/28/24 History Allergies Allergy/AdvReac Type Severity Reaction Status Date / Time No Known Allergies Allergy Verified 08/27/24 19:56 Vital Signs Vital Signs - 24 hr 08/27/24 19:57 08/27/24 20:30 08/27/24 20:45 Temperature 97.2 F L Pulse Rate 104 H 106 H 106 H Respiratory Rate 16 19 18 Blood Pressure 134/100 H 177/107 H 173/108 H Pulse Oximetry 97 98 97 Oxygen Delivery Room Air 08/27/24 21:00 08/27/24 21:01 08/27/24 21:30 Temperature Pulse Rate 108 H 104 H Respiratory Rate 17 20 Blood Pressure 163/101 H 157/93 H Pulse Oximetry 97 95 94 Oxygen Delivery Room Air 08/27/24 21:46 08/27/24 22:00 08/27/24 22:15 Temperature Pulse Rate 109 H 105 H 113 H Respiratory Rate 20 21 H 19 Blood Pressure 160/103 H 185/143 H 170/103 H Pulse Oximetry 95 98 93 Oxygen Delivery 08/27/24 22:30 08/27/24 23:16 08/27/24 23:30 Temperature Pulse Rate 106 H 101 H 104 H Respiratory Rate 20 16 22 H Blood Pressure 153/98 H 145/96 H 156/103 H Pulse Oximetry 93 95 96 Oxygen Delivery 08/27/24 23:46 08/28/24 00:05 Temperature 98.3 F Pulse Rate 103 H 103 H Respiratory Rate 24 H 16 Blood Pressure 151/93 H 152/94 H Pulse Oximetry 96 94 Oxygen Delivery Exam Narrative: General: Thin, well-developed gentleman sitting up in bed in no acute distress. Weight: 55 kg. BMI: 19.0. HEENT: Normocephalic, atraumatic. PERRL, EOMI. Sclera anicteric. Oral mucosa moist. Oropharynx clear. Neck: Supple. No JVD. Respiratory: Respirations are nonlabored he is speaking full sentences. Lung sounds are significantly diminished on the right with scattered crackles throughout the rest of the lung dorman. Cardiovascular: Regular rate and rhythm with S1-S2 gallop. Gastrointestinal: Abdomen is soft, nontender, and nondistended with positive bowel sounds. Skin: Warm and dry. No rash or lesions on limited exam. Extremities: No cyanosis, clubbing, or edema. Radial and pedal pulses intact. Neurological: Alert. Cranial nerves 2-12 are grossly intact. No gross focal deficits to casual conversation. Psychiatric: Pleasant and cooperative with normal mood and affect. Judgment and insight intact. H&P: Results Labs Labs: Short CBC 08/27/24 Range/Units 20:36 WBC 7.3 (4.5-10.0) K/mm3 Hgb 13.6 L (14.0-18.0) g/dL Hct 42.3 (42.0-52.0) % Plt Count 216 (150-375) k/mm3 BMP 08/27/24 20:36 Sodium 138 Potassium 4.3 Chloride 103 Carbon Dioxide 27 BUN 22 H Creatinine 1.06 Glucose 102 Calcium 9.0 Cardiac Enzymes 08/27/24 08/27/24 Range/Units 20:36 23:14 Troponin I 0.037 H* 0.037 H* (0.000-0.034) ng/mL Liver Function 08/27/24 Range/Units 20:36 Total Bilirubin 0.7 (0.2-1.3) mg/dL AST 41 (17-59) U/L ALT 41 (6-50) U/L Alkaline Phosphatase 77 (38-126) U/L Albumin 4.0 (3.5-5.1) g/dL Urine 08/27/24 Range/Units 22:27 Urine Color Yellow (Yellow) Urine Appearance Clear (Clear) Urine pH 5.5 (5.0-9.0) Ur Specific [place] > 1.045 H (1.001-1.035) Urine Protein Negative (Negative) mg/dL Urine Glucose (UA) Negative (Negative) mg/dL Impressions Chest CTA 08/27/24 21:27 IMPRESSION: No pulmonary embolus. No thoracic aortic dissection. Findings consistent with pulmonary hypertension Large right-sided pleural effusion encompassing nearly the entirety of the right hemithorax. Remaining pulmonary parenchyma demonstrates findings with significant pulmonary edema. Assessment and Plan Assessment and plan (1) Acute exacerbation of congestive heart failure: Code(s): I50.9 - Heart failure, unspecified Status: Acute (2) Pleural effusion on right: Code(s): J90 - Pleural effusion, not elsewhere classified Status: Acute (3) Elevated troponin: Code(s): R79.89 - Other specified abnormal findings of blood chemistry Status: Acute (4) Elevated blood pressure reading: Code(s): R03.0 - Elevated blood-pressure reading, without diagnosis of hypertension Status: Acute Plan The patient presented to the emergency department for evaluation of increasing dyspnea on lesser and lesser exertion over the past couple of weeks as detailed in HPI. Labs, imaging, EKG, and all reports were personally reviewed. Imaging showed a large right-sided pleural effusion and pretty significant pulmonary edema likely due to to systolic CHF exacerbation. Precipitating etiology is not entirely clear but his blood pressures were pretty high on arrival however have improved somewhat. I suspect he will need to be started on antihypertensives. He will be diuresed with close monitoring of volume status, renal function, and electrolytes. Diagnostic and therapeutic right-sided thoracentesis ordered as I do not think diuretics alone will make any meaningful difference in the size of this effusion. Echocardiogram has been ordered. Troponins will be trended to peak. Cardiology has been consulted for further recommendations. Discontinue antibiotics as there is low suspicion for pneumonia. His home medications will be reviewed and resumed as appropriate. Findings and treatment plan were discussed with the patient and his . Questions were solicited and answered to satisfaction. The patient's medical management will be taken over by the hospitalist team in a.m. Quality VTE Prophylaxis VTE prophylaxis: pharmacologic ordered The patient has been admitted under observation status. Hospitalist MIPS Advance Care Plan I have confirmed that the patient's Advanced Care Plan is present, code status is documented, or surrogate decision maker is listed in patient medical record.: Yes Medication Reconciliation I have utilized all available resources to obtain, update and review the patients current medications (includes all prescriptions, OTC, herbals, cannabis, and nutritional supplements).: Yes
--- NOTE | 2024-08-28 00:57 | ECHO_ITS ---
Patient Info Name: Helen Hill Age: 64 years : 1960 Gender: Male Ht: 67 in Wt: 121 lbs BSA: 1.60 m2 HR: 68 bpm BP: 111 / 58 mmHg Heart Rhythm: Sinus Rhythm Technical Quality: Fair Exam Date: 08/28/2024 8:06 AM Exam Location: Echo Lab Patient Status: Inpatient Admit Date: 08/28/2024 Staff Ordering Physician: Dunia Capps PA-C Manager Child: Yue Machuca RDCS Attending Provider: Cadence Jacinto MD Referring Physician: Génesis AVALOS; Exam Type: CA echo doppler color flow Study Info Indications - CHF Complete two-dimensional, color flow and Doppler transthoracic echocardiogram is performed. Summary 1. Left ventricular chamber dimension is moderately enlarged. 2. Left ventricular systolic function is severely reduced, estimated at 20-25%. 3. There is mildly increased left ventricular wall thickness. 4. The left ventricular diastolic function is grade I diastolic dysfunction. 5. Right ventricular chamber dimension is normal. 6. Right ventricular systolic function is normal. 7. Left atrial chamber dimension is moderately enlarged. 8. Right atrial chamber dimension is moderately enlarged. 9. The aortic valve appears to be bicuspid. 10. There is mild mitral valve regurgitation. Left Ventricle Left ventricular chamber dimension is moderately enlarged. Left ventricular systolic function is severely reduced, estimated at 20-25%. There is mildly increased left ventricular wall thickness. The left ventricular diastolic function is grade I diastolic dysfunction. Right Ventricle Right ventricular chamber dimension is normal. Right ventricular systolic function is normal. Left Atria Left atrial chamber dimension is moderately enlarged. Right Atria Right atrial chamber dimension is moderately enlarged. Atrial Septum Intact interatrial septum visualized by color flow imaging. Aortic Valve The aortic valve appears to be bicuspid. There is no aortic valve stenosis. There is no aortic valve regurgitation. There is mild aortic valve calcification. Pulmonic Valve The pulmonic valve is not well visualized. There is trace pulmonic regurgitation. Mitral Valve There is mild mitral valve regurgitation. Tricuspid Valve There is trace tricuspid valve regurgitation. Pericardium/Pleural There is no pericardial effusion. Inferior Vena Cava Normal inferior vena cava with >50% collapse upon inspiration consistent with normal right atrial pressure, 3 mmHg. Aorta The aortic root size at the sinus of Valsalva is normal. Left Ventricular Outflow Tract Name Value Normal LVOT 2D LVOT Diameter 2.0 cm LVOT Doppler LVOT Peak Gradient 3 mmHg LVOT Mean Gradient 1 mmHg LVOT VTI 12 cm LVOT VTI/AV VTI Ratio 0.7 LVOT Stroke Volume 39 ml LVOT CO 3.8 l/min LVOT CI 2.4 l/min/m2 Pulmonic Valve Name Value Normal RVOT Doppler RVOT Peak Gradient 2 mmHg PV Doppler PV Peak Gradient 11 mmHg Mitral Valve Name Value Normal MV Doppler MV Decel [place] 520 cm/s2 MV PHT 43 ms MV Area (PHT) 5.2 cm2 4.0-5.0 MV Diastolic Function MV E Peak Velocity 76 cm/s MV A Peak Velocity 76 cm/s MV E/A 1.0 MV Decel Time 147 ms MV Annular TDI MV E/e' (Septal) 25.4 <=8.0 MV E/e' (Lateral) 26.8 <=8.0 MV E/e' (Average) 26.1 Tricuspid Valve Name Value Normal TV Regurgitation Doppler TR Peak Velocity 197 cm/s TR Peak Gradient 16 mmHg Estimated PAP/RSVP RA Pressure 3 mmHg <=5 PA Systolic Pressure 19 mmHg <36 RV Systolic Pressure 19 mmHg <36 Aortic Valve Name Value Normal AV Doppler AV Peak Velocity 106 cm/s AV Peak Gradient 4 mmHg AV Mean Gradient 3 mmHg AV VTI 19 cm AV Area (Cont Eq VTI) 2.1 cm2 >=3.0 AV Area (Cont Eq Yoni) 2.4 cm2 AV Regurgitation 2D LVOT Area 3.2 cm2 Ventricles Name Value Normal LV Dimensions 2D/MM IVS Diastolic Thickness (2D) 1.0 cm 0.6-1.0 LVID Diastole (2D) 4.4 cm 4.2-5.8 LVIW Diastolic Thickness (2D) 1.1 cm 0.6-1.0 LVID Systole (2D) 3.9 cm 2.5-4.0 LVOT Diameter 2.0 cm LV Mass (2D Cubed) 146.54 g 88.00-224.00 LV Mass Index (2D Cubed) 91 g/m2 49-115 Relative Wall Thickness (2D) 0.48 LV Fractional Shortening/Ejection Fraction 2D/MM LV Fractional Shortening (2D) 7 % 25-43 LV EF (2D Teicholz) 16 % 52-72 LV Diastolic Volume (4C MOD) 127 ml LV EF (4C MOD) 20 % LV Diastolic Volume (2C MOD) 143 ml LV EF (2C MOD) 43 % LV Diastolic Volume (BP MOD) 138 ml 62-150 LV Diastolic Volume Index (BP MOD) 86 ml/m2 34-74 LV Systolic Volume (BP MOD) 96 ml 21-61 LV Systolic Volume Index (BP MOD) 60 ml/m2 11-31 LV EF (BP MOD) 30 % 52-72 LV Diastolic Length (4C) 7.0 cm LV Systolic Length (4C) 6.2 cm LV Stroke Volume (4C MOD) 26 ml Atria Name Value Normal LA Dimensions LA Volume (4C A-L) 34 ml LA Volume (BP A-L) 48 ml RA Dimensions RA Area (4C) 11.1 cm2 <=18.0 Report Signatures
[2024-08-28] MEDS: FUROSEMIDE INJ 100 MG/10 ML VIAL 40 MG IV PUSH (01:03)
[2024-08-28 05:07] LABS: Hematocrit 41.6 % (42.0-52.0); Hemoglobin 13.8 g/dL (14.0-18.0); Mean Corpuscular HGB Conc 33.2 g/dl (32-36); Mean Corpuscular Hemoglobin 29.9 pg (26-34); Mean Corpuscular Volume 90.2 fl (80-100); Mean Platelet Volume 10.8 fl (7.4-10.4); Platelet Count Result 204 k/mm3 (150-375); Red Blood Count 4.61 M/mm3 (4.6-6.20); Red Cell Distribution Width 13.8 % (11.5-14.5); White Blood Count 8.8 K/mm3 (4.5-10.0)
[2024-08-28 05:19] LABS: Albumin Level 3.7 g/dL (3.5-5.1); Cholesterol 194 mg/dL (0-200); Lactate Dehydrogenase 196 U/L (120-246)
[2024-08-28 05:25] LABS: INR 1.1; Prothrombin Time 14.7 Seconds (11.1-14.7)
[2024-08-28 05:29] LABS: Anion Gap 7 mmol/L (4-12); Blood Urea Nitrogen 20 mg/dL (9-20); Calcium 8.6 mg/dL (8.4-10.2); Carbon Dioxide 27 mmol/L (22-30); Chloride 102 mmol/L (98-107); Estimated CRCL calculation 53 ml/min; Estimated Glomerular Filt Rate > 60; Glucose 172 mg/dL (65-110); Magnesium 1.9 mg/dL (1.6-2.3); Potassium 3.7 mmol/L (3.4-5.0); Sodium 136 mmol/L (137-145)
[2024-08-28 05:40] LABS: Troponin I 0.037 ng/mL (0.000-0.034)
[2024-08-28] MEDS: IPRATROPIUM 0.5 MG/ALBUTEROL SULFATE 2.5 MG AMPUL.NEB 3 ML INHALATION ×3 (07:13→19:14)
--- NOTE | 2024-08-28 08:47 | PM.IMPN ---
Progress Note: A&P Assessment and Plan (1) Acute exacerbation of congestive heart failure: Code(s): I50.9 - Heart failure, unspecified Status: Acute (2) Pleural effusion on right: Code(s): J90 - Pleural effusion, not elsewhere classified Status: Acute (3) Elevated troponin: Code(s): R79.89 - Other specified abnormal findings of blood chemistry Status: Acute (4) Elevated blood pressure reading: Code(s): R03.0 - Elevated blood-pressure reading, without diagnosis of hypertension Status: Acute Plan This is a very pleasant 63-year-old male with a history of heart failure with moderately reduced ejection fraction estimated at 40 45% with grade 1 diastolic dysfunction noted on echocardiogram in June 2022 and remote history of colon cancer who presented to the emergency department via private vehicle from urgent care for evaluation of shortness of breath. 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 He also endorses a cough which is occasionally productive of yellow phlegm, rare palpitations, and mild orthopnea. He has not noticed any swelling and in fact he has lost some weight. Today he went to urgent care where he was found to have a large right-sided pleural effusion and he was directed to the ED. He denies fever, chills, sweats, chest pain, pleuritic pain, lower extremity edema, calf pain, nausea, and vomiting. In the ED: Vital signs on arrival include a temperature of 97.2?, blood pressure 134/100, pulse 104, respiratory 16, SpO2 97% on room air. Labs were significant for WBC count of 7.3, hemoglobin 13.6, BUN 22, creatinine 1.06, troponin 0.037, proBNP 3520, lipase 308. He tested negative negative for flu, RSV, and COVID. Chest CTA was negative for pulmonary embolus and dissection but did show findings consistent with pulmonary hypertension and large right-sided pleural effusion with pulmonary edema. He has been started on diuretics and is being admitted in this setting for further treatment. He received ceftriaxone and azithromycin in the ED. however low suspicion for pneumonia and hence antibiotic has been discontinued. Acute on chronic diastolic systolic congestive heart failure EF 40-45% with grade 1 diastolic dysfunction June 2022. Echo. Cardiology consult continue diuresis Right-sided pleural effusion large diagnostic and therapeutic right-sided thoracentesis ordered. TSH is pending procalcitonin is 0 Elevated troponin trended and flat History of colon cancer status post right mohit colectomy and ileocolonic anastomosis DVT prophylaxis Lovenox Code status full code Subjective Date/time seen: 08/28/24 08:47 Interval history: Feels okay. Denies any shortness of breath or chest pain. Minimal cough Review of Systems Review of Systems: All systems reviewed & are unremarkable except as noted in HPI and below Exam Narrative: General: Thin, well-developed gentleman sitting up in bed in no acute distress. HEENT: Normocephalic, atraumatic. PERRL, EOMI. Sclera anicteric. Oral mucosa moist. Oropharynx clear. Neck: Supple. No JVD. Respiratory: Respirations are nonlabored he is speaking full sentences. Lung sounds are significantly diminished on the right with scattered crackles throughout the rest of the lung dorman. Cardiovascular: Regular rate and rhythm with S1-S2. Sounds to have a gallop, difficult for me to distinguish if this is an S3 or wide split S2. Gastrointestinal: Abdomen is soft, nontender, and nondistended with positive bowel sounds. Skin: Warm and dry. No rash or lesions on limited exam. Extremities: No cyanosis, clubbing, or edema. Radial and pedal pulses intact. Neurological: Alert. Cranial nerves 2-12 are grossly intact. No gross focal deficits to casual conversation. Psychiatric: Pleasant and cooperative with normal mood and affect. Judgment and insight intact. Objective Data Vital Signs Vital Signs: Vital Signs - 24 hr 08/27/24 19:57 08/27/24 20:30 08/27/24 20:45 Temperature 97.2 F L Pulse Rate 104 H 106 H 106 H Respiratory Rate 16 19 18 Blood Pressure 134/100 H 177/107 H 173/108 H Pulse Oximetry 97 98 97 Oxygen Delivery Room Air 08/27/24 21:00 08/27/24 21:01 08/27/24 21:30 Temperature Pulse Rate 108 H 104 H Respiratory Rate 17 20 Blood Pressure 163/101 H 157/93 H Pulse Oximetry 97 95 94 Oxygen Delivery Room Air 08/27/24 21:46 08/27/24 22:00 08/27/24 22:15 Temperature Pulse Rate 109 H 105 H 113 H Respiratory Rate 20 21 H 19 Blood Pressure 160/103 H 185/143 H 170/103 H Pulse Oximetry 95 98 93 Oxygen Delivery 08/27/24 22:30 08/27/24 23:16 08/27/24 23:30 Temperature Pulse Rate 106 H 101 H 104 H Respiratory Rate 20 16 22 H Blood Pressure 153/98 H 145/96 H 156/103 H Pulse Oximetry 93 95 96 Oxygen Delivery 08/27/24 23:46 08/28/24 00:05 08/28/24 00:45 Temperature 98.3 F Pulse Rate 103 H 103 H 103 H Respiratory Rate 24 H 16 16 Blood Pressure 151/93 H 152/94 H Pulse Oximetry 96 94 94 Oxygen Delivery Room Air 08/28/24 02:00 08/28/24 04:00 08/28/24 04:00 Temperature 97.8 F Pulse Rate 96 94 85 Respiratory Rate 15 15 Blood Pressure 115/58 L Pulse Oximetry 99 99 Oxygen Delivery Room Air 08/28/24 04:00 08/28/24 06:00 08/28/24 07:13 Temperature Pulse Rate 85 68 Respiratory Rate Blood Pressure Pulse Oximetry 98 Oxygen Delivery Room Air 08/28/24 07:13 08/28/24 07:20 Temperature Pulse Rate 90 93 Respiratory Rate 14 14 Blood Pressure Pulse Oximetry Oxygen Delivery Intake/Output Intake/Output: Intake & Output 08/25/24 08/26/24 08/27/24 08/28/24 23:59 23:59 23:59 23:59 Intake Total 300 Output Total 1900 Balance -1600 Meds/Results Medications: Active Medications Generic Name Dose Route Start Last Admin Trade Name Freq PRN Reason Stop Dose Admin Acetaminophen 650 mg 08/27/24 22:48 Acetaminophen 325 Mg Tablet PO Q4H PRN Mild Pain (1-3) or Fever Albuterol/Ipratropium 3 ml 08/28/24 02:00 08/28/24 07:13 Ipratropium 0.5 Mg/Albuterol Sulfate 2.5 Mg Ampul.Neb 3 Ml INHALATION 3 ml Q6HRT PUSHPA Administration Enoxaparin Sodium 40 mg 08/28/24 09:00 Enoxaparin 40 Mg/0.4 Ml Syringe SUB-Q DAILY PUSHPA Furosemide 40 mg 08/28/24 09:00 Furosemide Inj 40 Mg/4 Ml Vial IV PUSH Q12HR PUSHPA Perflutren Lipid Microsphere 0 ml 08/28/24 00:57 Perflutren Lipid Microspheres 1.5 Ml Vial Diluted To 10 Ml Total Volume IV PUSH 08/31/24 00:57 ONCE PRN adequate visualization Protocol Radiology Results: ITS Impressions Chest CTA 08/27/24 21:27 IMPRESSION: No pulmonary embolus. No thoracic aortic dissection. Findings consistent with pulmonary hypertension Large right-sided pleural effusion encompassing nearly the entirety of the right hemithorax. Remaining pulmonary parenchyma demonstrates findings with significant pulmonary edema. Labs Labs: Laboratory Results - last 24 hr 08/27/24 08/27/24 08/27/24 20:36 22:27 23:14 WBC 7.3 RBC 4.62 Hgb 13.6 L Hct 42.3 MCV 91.6 MCH 29.4 MCHC 32.2 RDW 14.2 Plt Count 216 MPV 10.5 H Immature Gran % (Auto) 0.1 Neut % (Auto) 68.2 Lymph % (Auto) 15.9 L [place] % (Auto) 8.5 Eos % (Auto) 6.6 H Baso % (Auto) 0.7 Lymph # (Auto) 1.16 [place] # (Auto) 0.6 Eos # (Auto) 0.5 H Baso # (Auto) 0.1 Abs Immat Gran (auto) 0.01 Absolute Neuts (auto) 5.0 Absolute Nucleated RBC 0.000 Nucleated RBC % 0.0 PT 14.1 INR 1.1 APTT 37.5 H Sodium 138 Potassium 4.3 Chloride 103 Carbon Dioxide 27 Anion Gap 8 BUN 22 H Creatinine 1.06 Estim Creat Clear Calc 51 Estimated GFR > 60 Glucose 102 Lactic Acid 1.1 Calcium 9.0 Magnesium 2.0 Total Bilirubin 0.7 AST 41 ALT 41 Alkaline Phosphatase 77 Lactate Dehydrogenase Troponin I 0.037 H* 0.037 H* NT-Pro-B Natriuret Pep 3520 H Total Protein 8.0 Albumin 4.0 Cholesterol Lipase 308 H Procalcitonin 0.0 Urine Color Yellow Urine Appearance Clear Urine pH 5.5 Ur Specific [place] > 1.045 H Urine Protein Negative Urine Glucose (UA) Negative Urine Ketones 1+ H Ur Blood (Man) Negative Urine Nitrate Negative Urine Bilirubin Negative Urine Urobilinogen 0.2 Leukocyte Esterase Rfl Negative Influenza A (RT-PCR) Negative Influenza B (RT-PCR) Negative RSV (RT-PCR) Negative SARS-CoV-2 RNA (RT-PCR) Negative 08/28/24 08/28/24 04:36 04:36 WBC 8.8 RBC 4.61 Hgb 13.8 L Hct 41.6 L MCV 90.2 MCH 29.9 MCHC 33.2 RDW 13.8 Plt Count 204 MPV 10.8 H Immature Gran % (Auto) Neut % (Auto) Lymph % (Auto) [place] % (Auto) Eos % (Auto) Baso % (Auto) Lymph # (Auto) [place] # (Auto) Eos # (Auto) Baso # (Auto) Abs Immat Gran (auto) Absolute Neuts (auto) Absolute Nucleated RBC Nucleated RBC % PT 14.7 INR 1.1 APTT Sodium 136 L Potassium 3.7 Chloride 102 Carbon Dioxide 27 Anion Gap 7 BUN 20 Creatinine 0.99 Estim Creat Clear Calc 53 Estimated GFR > 60 Glucose Cancelled 172 H Lactic Acid Calcium 8.6 Magnesium 1.9 Total Bilirubin AST ALT Alkaline Phosphatase Lactate Dehydrogenase 196 Troponin I 0.037 H* NT-Pro-B Natriuret Pep Total Protein 7.0 Albumin 3.7 Cholesterol 194 Lipase Procalcitonin Urine Color Urine Appearance Urine pH Ur Specific [place] Urine Protein Urine Glucose (UA) Urine Ketones Ur Blood (Man) Urine Nitrate Urine Bilirubin Urine Urobilinogen Leukocyte Esterase Rfl Influenza A (RT-PCR) Influenza B (RT-PCR) RSV (RT-PCR) SARS-CoV-2 RNA (RT-PCR)
[2024-08-28] MEDS: ENOXAPARIN 40 MG/0.4 ML SYRINGE SUB-Q (09:07)
[2024-08-28] MEDS: FUROSEMIDE INJ 40 MG/4 ML VIAL IV PUSH (09:07)
[2024-08-28 10:36] LABS: Cholesterol 189 mg/dL (0-200); HDL Direct 55 mg/dL; Triglycerides 57 mg/dL (<150)
[2024-08-28 10:47] LABS: LDL Cholesterol Direct 117 mg/dL
--- NOTE | 2024-08-28 15:22 | P.CONCA_ITS ---
Assessment and Plan Assessment and plan (1) Acute exacerbation of congestive heart failure: Code(s): I50.9 - Heart failure, unspecified Status: Acute Plan 1. Acute heart failure with reduced LVEF of 20-25% per TTE 08/28/2024 2. Paroxysmal atrial fibrillation / atrial flutter noted on telemetry. TSH level normal. 3. Elevated troponin level. Flat. Not an acute coronary syndrome. 4. Possible bicuspid aortic valve without stenosis/regurgitation, noted on TTE 08/28/2024 PLAN: -Continue IV Lasix, will decrease down to 40mg IV daily to allow blood pressure room to add GDMT. Please monitor strict I/Os. -If blood pressure allows, would like to add Entresto, Toprol, Spironolactone, Jardiance. Will add GDMT as tolerated. -Telemetry reveals paroxysmal AFIB/atrial flutter. This is a new diagnosis for the patient as well. Will add Toprol if blood pressure allows. [id number] of 1 for CHF; therefore anticoagulation for strike risk reduction not indicated at this time. -Recommend ischemic evaluation for HFrEF. [facility] discussed with patient and he is agreeable. Will plan for Friday. -Patient declined Life Vest. Recommendations and plan discussed with Hospitalist. History of Present Illness History of Present Illness Consult date/time: 08/28/24 15:22 Requesting physician: Dunia Capps PA-C Consult reason: congestive heart failure Reason For Visit: Pneumonia, pleural effusion, elevated troponin Narrative: Helen is a 63 year old male with remote history of colon cancer who presented with shortness of breath over past two weeks. No chest pain. Has felt intermittent palpitations as well. Had an echocardiogram done in 2022 that showed mild LV systolic dysfunction. 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 Family states they were not aware about that echocardiogram. Workup here shows troponins at 0.037 x 3, NT pro BNP of 3520. Chest CTA with large right-sided pleural effusion encompassing nearly the entirety of the right hemothorax, along with significant pulmonary edema. EKG shows sinus tachycardia, left atrial enlargement, LVH with secondary STTW abnormality. Started on IV Lasix on admission and feeling better now. Off of supplemental oxygen now. Review of Systems 2 Review of Systems: All systems reviewed & are unremarkable except as noted in HPI and below (HPI) PMFSH Past Medical History Medical History Hemorrhoids Body mass index (BMI) less than or equal to 19 in adult Abnormal fasting glucose (03/27/22) fasting glucose 105 on 03/27/2022. Fasting glucose 93 with hemoglobin A1c 5.4 on 09/04/2022. fasting glucose 96 with hemoglobin A1c 5.5 on 04/23/2023. Abnormal serum iron level (03/27/22) iron 187 with 61% saturation and ferritin 52 03/27/2022 with hemoglobin 13.8. Iron normal at 72 with 22% saturation and ferritin 37 with hemoglobin 13.4 on 09/04/2022. Iron 60 with 19% saturation and ferritin 43 with hemoglobin 14.0 on 04/23/2023. Newly recognized murmur (04/03/22) Grade 2/6 LOUISE with click. Echocardiogram with no significant valvular problems on 07/08/2022 with decreased systolic function with ejection fraction of 40-45% and grade 1 diastolic dysfunction with mild left ventricular enlargement and moderate left atrial enlargement. Prostate cancer screening PSA 1.07 on 03/27/2022. PSA 1.02 on 04/23/2023. History of colon cancer Right hemicolectomy 10/05/2007. colonoscopy 2018 with polyp with recheck in [address] Sampson. colonoscopy 06/18/2023 with ileocecal anastomosis and internal hemorrhoids with recheck in 5 years Vitamin D deficiency Seasonal allergies Surgical History Surgical History History of colectomy (09/2007) Right hemicolectomy for colon cancer History of colonoscopy with polypectomy colonoscopy with polyp 2018. History of colonoscopy 2006 Family History Family History Mother Cerebrovascular accident Father Carcinoma of colon Social History Social History Social History: Surrogate medical decision maker: Sandy Hernándezfarzana, spouse. Code status: Full code. Smoking status: Never smoker Alcohol intake: unknown Drinks per week: 2 Alcohol use details: Beer - Occasionally Substance use: unknown Substance use type: does not use Do You Feel Safe in your Home?: Yes Lack of Transportation: No Lack of Food: Never True Current Housing: I Have Housing Concerned About Future Housing: No Difficulty Paying Gas/Electric Bills: No Difficulty Paying for Meds: No Currently Unemployed: No Education: Trade/Vocational Certificate Difficulty w/ Childcare or Family Care: No Living arrangements: with family Spiritual care concerns: No Meds Home Medications and Allergies Home Medications ?Medication ?Instructions ?Recorded ?Confirmed ?Type No Home Medications 08/28/24 08/28/24 History Allergies Allergy/AdvReac Type Severity Reaction Status Date / Time No Known Allergies Allergy Verified 08/27/24 19:56 Vital Signs Vital Signs - 24 hr 08/27/24 19:57 08/27/24 20:30 08/27/24 20:45 Temperature 36.2 C L Pulse Rate 104 H 106 H 106 H Respiratory Rate 16 19 18 Blood Pressure 134/100 H 177/107 H 173/108 H Pulse Oximetry 97 98 97 Oxygen Delivery Room Air 08/27/24 21:00 08/27/24 21:01 08/27/24 21:30 Temperature Pulse Rate 108 H 104 H Respiratory Rate 17 20 Blood Pressure 163/101 H 157/93 H Pulse Oximetry 97 95 94 Oxygen Delivery Room Air 08/27/24 21:46 08/27/24 22:00 08/27/24 22:15 Temperature Pulse Rate 109 H 105 H 113 H Respiratory Rate 20 21 H 19 Blood Pressure 160/103 H 185/143 H 170/103 H Pulse Oximetry 95 98 93 Oxygen Delivery 08/27/24 22:30 08/27/24 23:16 08/27/24 23:30 Temperature Pulse Rate 106 H 101 H 104 H Respiratory Rate 20 16 22 H Blood Pressure 153/98 H 145/96 H 156/103 H Pulse Oximetry 93 95 96 Oxygen Delivery 08/27/24 23:46 08/28/24 00:05 08/28/24 00:45 Temperature 36.8 C Pulse Rate 103 H 103 H 103 H Respiratory Rate 24 H 16 16 Blood Pressure 151/93 H 152/94 H Pulse Oximetry 96 94 94 Oxygen Delivery Room Air 08/28/24 02:00 08/28/24 04:00 08/28/24 04:00 Temperature 36.6 C Pulse Rate 96 94 85 Respiratory Rate 15 15 Blood Pressure 115/58 L Pulse Oximetry 99 99 Oxygen Delivery Room Air 08/28/24 04:00 08/28/24 06:00 08/28/24 07:13 Temperature Pulse Rate 85 68 Respiratory Rate Blood Pressure Pulse Oximetry 98 Oxygen Delivery Room Air 08/28/24 07:13 08/28/24 07:20 08/28/24 08:00 Temperature Pulse Rate 90 93 93 Respiratory Rate 14 14 14 Blood Pressure Pulse Oximetry 98 Oxygen Delivery Room Air 08/28/24 08:00 08/28/24 08:00 08/28/24 10:00 Temperature 36.4 C L Pulse Rate 93 93 93 Respiratory Rate 18 Blood Pressure 139/79 Pulse Oximetry 100 Oxygen Delivery 08/28/24 12:00 08/28/24 12:00 08/28/24 12:00 Temperature 36.7 C Pulse Rate 93 101 H Respiratory Rate 18 Blood Pressure 98/50 L Pulse Oximetry 98 Oxygen Delivery Room Air 08/28/24 14:00 08/28/24 14:32 08/28/24 14:38 Temperature Pulse Rate 95 89 100 Respiratory Rate 14 14 Blood Pressure Pulse Oximetry Oxygen Delivery Exam 2 Const: General: comfortable and no acute distress HENMT: Mouth: Yes moist mucous membranes Eyes: General: appearance normal, both eyes and all related structures S clera: sclerae normal Resp: Effort & Inspection: normal respiratory effort Auscultation: d iminished lung sounds Cardio: Rate: regular rate Rhythm: regular rhythm Heart sounds: no murmurs Skin: General skin exam: normal color Psych: Mental Status: mental status grossly normal Affect: normal affect Results Labs and Meds 08/28/24 04:36 08/28/24 04:36 Lab results: Cardiac Enzymes 08/27/24 08/27/24 08/28/24 Range/Units 20:36 23:14 04:36 AST 41 (17-59) U/L Lactate Dehydrogenase 196 (120-246) U/L Troponin I 0.037 H* 0.037 H* 0.037 H* (0.000-0.034) ng/mL Coagulation 08/27/24 08/28/24 Range/Units 20:36 04:36 PT 14.1 14.7 (11.1-14.7) Seconds APTT 37.5 H (22.3-36.8) Seconds Lipids 08/28/24 08/28/24 Range/Units 04:36 04:36 Triglycerides 57 (<150) mg/dL Cholesterol 194 189 (0-200) mg/dL CBC 08/27/24 08/28/24 Range/Units 20:36 04:36 WBC 7.3 8.8 (4.5-10.0) K/mm3 RBC 4.62 4.61 (4.6-6.20) M/mm3 Hgb 13.6 L 13.8 L (14.0-18.0) g/dL Hct 42.3 41.6 L (42.0-52.0) % Plt Count 216 204 (150-375) k/mm3 Lymph # (Auto) 1.16 (0.9-3.2) K/mm3 [place] # (Auto) 0.6 (0.1-0.6) K/mm3 Eos # (Auto) 0.5 H (0-0.3) K/mm3 Baso # (Auto) 0.1 (0.0-0.1) K/mm3 Comprehensive Metabolic Panel 08/27/24 08/28/24 08/28/24 Range/Units 20:36 04:36 04:36 Sodium 138 136 L (137-145) mmol/L Potassium 4.3 3.7 (3.4-5.0) mmol/L Chloride 103 102 (98-107) mmol/L Carbon Dioxide 27 27 (22-30) mmol/L BUN 22 H 20 (9-20) mg/dL Creatinine 1.06 0.99 (0.7-1.3) mg/dL Glucose 102 Cancelled 172 H (65-110) mg/dL Calcium 9.0 8.6 (8.4-10.2) mg/dL AST 41 (17-59) U/L ALT 41 (6-50) U/L Alkaline Phosphatase 77 (38-126) U/L Total Protein 8.0 7.0 (6.3-8.2) g/dL Albumin 4.0 3.7 (3.5-5.1) g/dL Intake and Output 08/27/24 08/28/24 08/28/24 23:59 07:59 15:59 Intake Total 300 0 Output Total 1900 Balance -1600 0 Intake: Oral 300 0 Output: Urine 1900 Patient Weight 08/28/24 23:59 Weight 55 kg
[2024-08-29] VITALS (25 sets, daily range): BP systolic 97–137; BP diastolic 54–84; PULSE 62–159; RESP 12–20; TEMP 36.4–36.8; O2SAT 98–100
[2024-08-29] MEDS: IPRATROPIUM 0.5 MG/ALBUTEROL SULFATE 2.5 MG AMPUL.NEB 3 ML INHALATION ×4 (01:24→20:35)
[2024-08-29 05:38] LABS: Basophils Absolute Auto 0.1 K/mm3 (0.0-0.1); Basophils Percent Auto 0.9 % (0.2-1.2); Eosinophils Absolute Auto 0.5 K/mm3 (0-0.3); Eosinophils Percent Auto 7.7 % (0-4.4); Hematocrit 40.8 % (42.0-52.0); Hemoglobin 13.2 g/dL (14.0-18.0); Immature Granulocyte Absolute 0.01 K/mm3 (0.00-0.031); Immature Granulocyte Percent A 0.1 % (0-0.5); Lymphocytes Absolute Auto 1.62 K/mm3 (0.9-3.2); Lymphocytes Percent Auto 23.2 % (18.3-44.2); Mean Corpuscular HGB Conc 32.4 g/dl (32-36); Mean Corpuscular Hemoglobin 29.7 pg (26-34); Mean Corpuscular Volume 91.7 fl (80-100); Mean Platelet Volume 11.1 fl (7.4-10.4); Monocytes Absolute Auto 0.8 K/mm3 (0.1-0.6); Monocytes Percent Auto 11.6 % (2.6-8.5); Neutrophils Absolute Auto 3.9 K/mm3 (1.3-6.7); Neutrophils Percent Auto 56.5 % (45.5-73.1); Platelet Count Result 208 k/mm3 (150-375); Red Blood Count 4.45 M/mm3 (4.6-6.20); Red Cell Distribution Width 14.1 % (11.5-14.5)
[2024-08-29 05:53] LABS: Alanine Aminotransferase 29 U/L (6-50); Albumin Level 3.5 g/dL (3.5-5.1); Alkaline Phosphatase 62 U/L (38-126); Anion Gap 8 mmol/L (4-12); Aspartate Amino Transferase 27 U/L (17-59); Bilirubin,Total 0.7 mg/dL (0.2-1.3); Blood Urea Nitrogen 19 mg/dL (9-20); Calcium 8.4 mg/dL (8.4-10.2); Carbon Dioxide 31 mmol/L (22-30); Chloride 99 mmol/L (98-107); Estimated CRCL calculation 47 ml/min; Estimated Glomerular Filt Rate > 60; Glucose 99 mg/dL (65-110); Potassium 3.4 mmol/L (3.4-5.0); Sodium 138 mmol/L (137-145)
[2024-08-29] MEDS: ENOXAPARIN 40 MG/0.4 ML SYRINGE SUB-Q (12:39)
[2024-08-29] MEDS: FUROSEMIDE INJ 40 MG/4 ML VIAL IV PUSH (12:39)
--- NOTE | 2024-08-29 13:10 | P.PNIM_ITS ---
Progress Note: A&P Assessment and Plan (1) Acute exacerbation of congestive heart failure: Code(s): I50.9 - Heart failure, unspecified Status: Acute (2) Pleural effusion on right: Code(s): J90 - Pleural effusion, not elsewhere classified Status: Acute (3) Elevated troponin: Code(s): R79.89 - Other specified abnormal findings of blood chemistry Status: Acute (4) Elevated blood pressure reading: Code(s): R03.0 - Elevated blood-pressure reading, without diagnosis of hypertension Status: Acute Plan This is a very pleasant 63-year-old male with a history of heart failure with moderately reduced ejection fraction estimated at 40 45% with grade 1 diastolic dysfunction noted on echocardiogram in June 2022 and remote history of colon cancer who presented to the emergency department via private vehicle from urgent care for evaluation of shortness of breath. 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 He also endorses a cough which is occasionally productive of yellow phlegm, rare palpitations, and mild orthopnea. He has not noticed any swelling and in fact he has lost some weight. Today he went to urgent care where he was found to have a large right-sided pleural effusion and he was directed to the ED. He denies fever, chills, sweats, chest pain, pleuritic pain, lower extremity edema, calf pain, nausea, and vomiting. In the ED: Vital signs on arrival include a temperature of 97.2?, blood pressure 134/100, pulse 104, respiratory 16, SpO2 97% on room air. Labs were significant for WBC count of 7.3, hemoglobin 13.6, BUN 22, creatinine 1.06, troponin 0.037, proBNP 3520, lipase 308. He tested negative negative for flu, RSV, and COVID. Chest CTA was negative for pulmonary embolus and dissection but did show findings consistent with pulmonary hypertension and large right- sided pleural effusion with pulmonary edema. He has been started on diuretics and is being admitted in this setting for further treatment. He received ceftriaxone and azithromycin in the ED. however low suspicion for pneumonia and hence antibiotic has been discontinued. Acute on chronic diastolic systolic congestive heart failure EF 40-45% with grade 1 diastolic dysfunction June 2022. Repeat echo with EF 20-25%. Patient will start on goal-directed medical therapy as will be ordered by bullet slug casting machine operator. Does not look overtly volume overloaded will lower down diuresis to once daily. Does have right pleural effusion. Cardiology planning to do cardiac catheterization tomorrow. Atrial flutter intermittent beta-jaimie to start as tolerated. Right-sided pleural effusion large diagnostic and therapeutic right-sided thoracentesis ordered. TSH is pending procalcitonin is 0 will hold off on thoracentesis and recheck chest x-ray in a.m. to re-evaluate amount of effusion present Elevated troponin trended and flat History of colon cancer status post right mohit colectomy and ileocolonic anastomosis DVT prophylaxis Lovenox Code status full code Subjective Date/time seen: 08/29/24 13:10 Interval history: Telemetry reviewed intermittent tachycardic feels shortness of breath has improved. Echo reviewed with the patient. Discussed with bullet slug casting machine operator. Review of Systems Review of Systems: All systems reviewed & are unremarkable except as noted in HPI and below Exam Narrative: General: Thin, well-developed gentleman sitting up in bed in no acute distress. HEENT: Normocephalic, atraumatic. PERRL, EOMI. Sclera anicteric. Oral mucosa moist. Oropharynx clear. Neck: Supple. No JVD. Respiratory: Respirations are nonlabored he is speaking full sentences. Lung sounds are significantly diminished on the right with scattered crackles throughout the rest of the lung dorman. Cardiovascular: Regular rate and rhythm with S1-S2. Gastrointestinal: Abdomen is soft, nontender, and nondistended with positive bowel sounds. Skin: Warm and dry. No rash or lesions on limited exam. Extremities: No cyanosis, clubbing, or edema. Radial and pedal pulses intact. Neurological: Alert. Cranial nerves 2-12 are grossly intact. No gross focal deficits to casual conversation. Psychiatric: Pleasant and cooperative with normal mood and affect. Judgment and insight intact. Objective Data Vital Signs Vital Signs: Vital Signs - 24 hr 08/28/24 14:00 08/28/24 14:32 08/28/24 14:38 Temperature Pulse Rate 95 89 100 Respiratory Rate 14 14 Blood Pressure Pulse Oximetry Oxygen Delivery 08/28/24 16:00 08/28/24 16:00 08/28/24 16:57 Temperature 98.2 F Pulse Rate 94 94 Respiratory Rate 18 Blood Pressure 117/71 Pulse Oximetry 97 Oxygen Delivery Room Air 08/28/24 19:14 08/28/24 19:14 08/28/24 19:22 Temperature Pulse Rate 88 93 Respiratory Rate 18 18 Blood Pressure Pulse Oximetry 98 Oxygen Delivery Room Air 08/28/24 19:56 08/28/24 19:56 08/28/24 20:00 Temperature 97.8 F Pulse Rate 88 93 Respiratory Rate 16 Blood Pressure 120/74 Pulse Oximetry 99 Oxygen Delivery Room Air 08/28/24 22:22 08/28/24 23:56 08/29/24 00:00 Temperature 97.8 F Pulse Rate 102 H 84 Respiratory Rate 15 Blood Pressure 108/60 Pulse Oximetry 99 Oxygen Delivery Room Air 08/29/24 00:00 08/29/24 01:24 08/29/24 01:35 Temperature Pulse Rate 74 94 92 Respiratory Rate 16 16 Blood Pressure Pulse Oximetry Oxygen Delivery 08/29/24 01:57 08/29/24 04:00 08/29/24 04:00 Temperature 97.7 F Pulse Rate 85 84 Respiratory Rate 16 Blood Pressure 107/59 L Pulse Oximetry 100 Oxygen Delivery Room Air 08/29/24 04:00 08/29/24 05:55 08/29/24 07:37 Temperature 97.6 F Pulse Rate 73 75 81 Respiratory Rate 12 Blood Pressure 100/60 Pulse Oximetry 98 Oxygen Delivery 08/29/24 08:00 08/29/24 08:00 08/29/24 08:20 Temperature Pulse Rate 88 88 Respiratory Rate 20 Blood Pressure Pulse Oximetry 98 98 Oxygen Delivery Room Air Room Air 08/29/24 08:20 08/29/24 08:28 08/29/24 10:00 Temperature Pulse Rate 74 88 88 Respiratory Rate 20 20 Blood Pressure Pulse Oximetry Oxygen Delivery 08/29/24 10:58 08/29/24 10:58 08/29/24 12:00 Temperature 98.3 F Pulse Rate 88 88 87 Respiratory Rate 20 16 Blood Pressure 97/54 L Pulse Oximetry 98 98 Oxygen Delivery Room Air Intake/Output Intake/Output: Intake & Output 08/26/24 08/27/24 08/28/24 08/29/24 23:59 23:59 23:59 23:59 Intake Total 300 50 Output Total 2800 300 Balance -2500 -250 Meds/Results Medications: Active Medications Generic Name Dose Route Start Last Admin Trade Name Freq PRN Reason Stop Dose Admin Acetaminophen 650 mg 08/27/24 22:48 Acetaminophen 325 Mg Tablet PO Q4H PRN Mild Pain (1-3) or Fever Albuterol/Ipratropium 3 ml 08/28/24 02:00 08/29/24 08:20 Ipratropium 0.5 Mg/Albuterol Sulfate 2.5 Mg Ampul.Neb 3 Ml INHALATION 3 ml Q6HRT PUSHPA Administration Enoxaparin Sodium 40 mg 08/28/24 09:00 08/29/24 12:39 Enoxaparin 40 Mg/0.4 Ml Syringe SUB-Q 40 mg DAILY PUSHPA Administration Furosemide 40 mg 08/29/24 09:00 08/29/24 12:39 Furosemide Inj 40 Mg/4 Ml Vial IV PUSH 40 mg DAILY PUSHPA Administration Perflutren Lipid Microsphere 0 ml 08/28/24 00:57 Perflutren Lipid Microspheres 1.5 Ml Vial Diluted To 10 Ml Total Volume IV PUSH 08/31/24 00:57 ONCE PRN adequate visualization Protocol Radiology Results: ITS Impressions Chest CTA 08/27/24 21:27 IMPRESSION: No pulmonary embolus. No thoracic aortic dissection. Findings consistent with pulmonary hypertension Large right-sided pleural effusion encompassing nearly the entirety of the right hemithorax. Remaining pulmonary parenchyma demonstrates findings with significant pulmonary edema. Labs Labs: Laboratory Results - last 24 hr 08/29/24 04:44 WBC 7.0 RBC 4.45 L Hgb 13.2 L Hct 40.8 L MCV 91.7 MCH 29.7 MCHC 32.4 RDW 14.1 Plt Count 208 MPV 11.1 H Immature Gran % (Auto) 0.1 Neut % (Auto) 56.5 Lymph % (Auto) 23.2 [place] % (Auto) 11.6 H Eos % (Auto) 7.7 H Baso % (Auto) 0.9 Lymph # (Auto) 1.62 [place] # (Auto) 0.8 H Eos # (Auto) 0.5 H Baso # (Auto) 0.1 Abs Immat Gran (auto) 0.01 Absolute Neuts (auto) 3.9 Absolute Nucleated RBC 0.000 Nucleated RBC % 0.0 Sodium 138 Potassium 3.4 Chloride 99 Carbon Dioxide 31 H Anion Gap 8 BUN 19 Creatinine 1.12 Estim Creat Clear Calc 47 Estimated GFR > 60 Glucose 99 Calcium 8.4 Magnesium 2.0 Total Bilirubin 0.7 AST 27 ALT 29 Alkaline Phosphatase 62 Total Protein 7.0 Albumin 3.5
[2024-08-29] MEDS: METOPROLOL TARTRATE 12.5 MG TABLET PO ×2 (17:47→20:17)
[2024-08-29 20:34] LABS: Glucose Point of Care 92 mg/dl (65-105)
[2024-08-30] VITALS (44 sets, daily range): BP systolic 95–139; BP diastolic 60–93; PULSE 69–98; RESP 12–24; TEMP 36.3–37; O2SAT 98–100
[2024-08-30 04:31] LABS: Basophils Absolute Auto 0.1 K/mm3 (0.0-0.1); Basophils Percent Auto 0.7 % (0.2-1.2); Eosinophils Absolute Auto 0.6 K/mm3 (0-0.3); Eosinophils Percent Auto 8.6 % (0-4.4); Hematocrit 38.9 % (42.0-52.0); Hemoglobin 12.7 g/dL (14.0-18.0); Immature Granulocyte Absolute 0.01 K/mm3 (0.00-0.031); Immature Granulocyte Percent A 0.1 % (0-0.5); Lymphocytes Absolute Auto 1.32 K/mm3 (0.9-3.2); Lymphocytes Percent Auto 19.6 % (18.3-44.2); Mean Corpuscular HGB Conc 32.6 g/dl (32-36); Mean Corpuscular Hemoglobin 29.6 pg (26-34); Mean Corpuscular Volume 90.7 fl (80-100); Mean Platelet Volume 10.5 fl (7.4-10.4); Monocytes Absolute Auto 0.7 K/mm3 (0.1-0.6); Monocytes Percent Auto 10.7 % (2.6-8.5); Neutrophils Percent Auto 60.3 % (45.5-73.1); Platelet Count Result 211 k/mm3 (150-375); Red Blood Count 4.29 M/mm3 (4.6-6.20); Red Cell Distribution Width 14.1 % (11.5-14.5); White Blood Count 6.7 K/mm3 (4.5-10.0)
[2024-08-30 04:49] LABS: Alanine Aminotransferase 26 U/L (6-50); Albumin Level 3.5 g/dL (3.5-5.1); Alkaline Phosphatase 62 U/L (38-126); Anion Gap 5 mmol/L (4-12); Aspartate Amino Transferase 28 U/L (17-59); Bilirubin,Total 0.9 mg/dL (0.2-1.3); Blood Urea Nitrogen 19 mg/dL (9-20); Calcium 8.8 mg/dL (8.4-10.2); Carbon Dioxide 30 mmol/L (22-30); Chloride 102 mmol/L (98-107); Estimated CRCL calculation 56 ml/min; Estimated Glomerular Filt Rate > 60; Glucose 95 mg/dL (65-110); Magnesium 1.9 mg/dL (1.6-2.3); Potassium 3.7 mmol/L (3.4-5.0); Sodium 137 mmol/L (137-145)
[2024-08-30] MEDS: IPRATROPIUM 0.5 MG/ALBUTEROL SULFATE 2.5 MG AMPUL.NEB 3 ML INHALATION (07:38)
[2024-08-30] MEDS: METOPROLOL TARTRATE 12.5 MG TABLET PO (08:37)
--- NOTE | 2024-08-30 12:51 | PM.PNCARD ---
Progress Note: A&P Assessment and Plan (1) Acute exacerbation of congestive heart failure: Code(s): I50.9 - Heart failure, unspecified Status: Acute Plan 63-year-old man with remote history of colon cancer presented with shortness of breath admitted for acute decompensated systolic heart failure New onset systolic heart failure (LVEF 20-25%) -continue Lasix 40 mg IV daily and will add Jardiance 10 mg p.o. daily -if blood pressure will tolerate, will add losartan 25 mg p.o. daily (blood pressure and unable to tolerate Entresto) -will define coronary anatomy today Paroxysmal atrial fibrillation -chads Vasc score 1 -continue metoprolol succinate 25 mg p.o. daily Subjective Date/time seen: 08/30/24 12:51 Interval history: No chest pain. Shortness of breath significantly improved. No orthopnea. No lower extremity swelling Review of Systems Cardiovascular: Cardiovascular: Reports as per HPI Respiratory: Respiratory: Reports as per HPI Exam Const: General: comfortable HENMT: Mouth: Yes moist mucous membranes Eyes: EOM: EOMs intact bilaterally Neck: Neck: no JVD Resp: Effort & Inspection: normal respiratory effort Auscultation: rales Cardio: Rate: regular rate Rhythm: regular rhythm GI: GI Palp: Yes Soft to palpation Neuro: Speech: normal speech Extrem: General: no pedal edema Objective Data Vital Signs Vital Signs: Vital Signs - 24 hr 08/29/24 14:05 08/29/24 14:11 08/29/24 16:00 Temperature 36.7 C Pulse Rate 62 67 99 Respiratory Rate 20 20 16 Blood Pressure 137/84 Pulse Oximetry 100 Oxygen Delivery 08/29/24 16:00 08/29/24 16:00 08/29/24 17:27 Temperature Pulse Rate 99 99 99 Respiratory Rate 16 Blood Pressure Pulse Oximetry 100 Oxygen Delivery Room Air 08/29/24 17:47 08/29/24 20:00 08/29/24 20:00 Temperature 36.7 C Pulse Rate 159 H 86 93 Respiratory Rate 16 Blood Pressure 113/76 Pulse Oximetry 100 Oxygen Delivery 08/29/24 20:17 08/29/24 20:35 08/29/24 20:38 Temperature Pulse Rate 88 83 Respiratory Rate 18 Blood Pressure Pulse Oximetry 100 Oxygen Delivery Room Air 08/29/24 20:44 08/29/24 22:00 08/29/24 23:35 Temperature 36.8 C Pulse Rate 79 106 H 91 Respiratory Rate 20 17 Blood Pressure 116/68 Pulse Oximetry 100 Oxygen Delivery 08/30/24 00:00 08/30/24 02:00 08/30/24 03:46 Temperature 36.6 C Pulse Rate 98 75 73 Respiratory Rate 18 Blood Pressure 116/61 Pulse Oximetry 100 Oxygen Delivery 08/30/24 04:00 08/30/24 06:00 08/30/24 07:40 Temperature Pulse Rate 69 84 81 Respiratory Rate 20 Blood Pressure Pulse Oximetry 98 Oxygen Delivery Room Air 08/30/24 07:40 08/30/24 07:49 08/30/24 08:00 Temperature 36.6 C Pulse Rate 81 84 80 Respiratory Rate 20 20 22 H Blood Pressure 95/69 L Pulse Oximetry 99 Oxygen Delivery 08/30/24 08:37 08/30/24 11:18 Temperature 36.3 C L Pulse Rate 87 88 Respiratory Rate 24 H Blood Pressure 112/68 Pulse Oximetry 100 Oxygen Delivery Intake/Output Intake/Output: Intake & Output 08/27/24 08/28/24 08/29/24 08/30/24 23:59 23:59 23:59 23:59 Intake Total 300 1320 Output Total 2800 2600 Balance -2500 -1280 Meds/Results Medications: Active Medications Generic Name Dose Route Start Last Admin Trade Name Freq PRN Reason Stop Dose Admin Acetaminophen 650 mg 08/27/24 22:48 Acetaminophen 325 Mg Tablet PO Q4H PRN Mild Pain (1-3) or Fever Albuterol/Ipratropium 3 ml 08/28/24 02:00 08/30/24 07:38 Ipratropium 0.5 Mg/Albuterol Sulfate 2.5 Mg Ampul.Neb 3 Ml INHALATION 3 ml Q6HRT PUSHPA Administration Enoxaparin Sodium 40 mg 08/28/24 09:00 08/29/24 12:39 Enoxaparin 40 Mg/0.4 Ml Syringe SUB-Q 40 mg DAILY PUSHPA Administration Furosemide 40 mg 08/29/24 09:00 08/29/24 12:39 Furosemide Inj 40 Mg/4 Ml Vial IV PUSH 40 mg DAILY PUSHPA Administration Metoprolol Tartrate 12.5 mg 08/29/24 15:25 08/30/24 08:37 Metoprolol Tartrate 12.5 Mg Tablet PO 12.5 mg Q12HR PUSHPA Administration Perflutren Lipid Microsphere 0 ml 08/28/24 00:57 Perflutren Lipid Microspheres 1.5 Ml Vial Diluted To 10 Ml Total Volume IV PUSH 08/31/24 00:57 ONCE PRN adequate visualization Protocol Radiology Results: ITS Impressions Chest CTA 08/27/24 21:27 IMPRESSION: No pulmonary embolus. No thoracic aortic dissection. Findings consistent with pulmonary hypertension Large right-sided pleural effusion encompassing nearly the entirety of the right hemithorax. Remaining pulmonary parenchyma demonstrates findings with significant pulmonary edema. Chest X-Ray 08/30/24 06:18 IMPRESSION: 1. Small right pleural effusion. 2. Cardiomegaly. Labs Labs: Laboratory Results - last 24 hr 08/29/24 08/30/24 20:22 03:51 WBC 6.7 RBC 4.29 L Hgb 12.7 L Hct 38.9 L MCV 90.7 MCH 29.6 MCHC 32.6 RDW 14.1 Plt Count 211 MPV 10.5 H Immature Gran % (Auto) 0.1 Neut % (Auto) 60.3 Lymph % (Auto) 19.6 [place] % (Auto) 10.7 H Eos % (Auto) 8.6 H Baso % (Auto) 0.7 Lymph # (Auto) 1.32 [place] # (Auto) 0.7 H Eos # (Auto) 0.6 H Baso # (Auto) 0.1 Abs Immat Gran (auto) 0.01 Absolute Neuts (auto) 4.0 Absolute Nucleated RBC 0.000 Nucleated RBC % 0.0 Sodium 137 Potassium 3.7 Chloride 102 Carbon Dioxide 30 Anion Gap 5 BUN 19 Creatinine 0.93 Estim Creat Clear Calc 56 Estimated GFR > 60 Glucose 95 POC Capillary Glucose 92 Calcium 8.8 Magnesium 1.9 Total Bilirubin 0.9 AST 28 ALT 26 Alkaline Phosphatase 62 Total Protein 7.0 Albumin 3.5
--- NOTE | 2024-08-30 12:56 | WPDHPUPDATE1 ---
History and Physical Update Update Date/Time: 08/30/24 11:56 History and Physical has been reviewed, including an updated exam of the patient. There are NO changes in the patient's condition. Risks, benefits, and alternatives have been discussed and questions answered. Patient agrees to proceed with procedure.
--- NOTE | 2024-08-30 12:57 | P.SEDATION_ITS ---
Moderate Sedation Note-Pt Data Patient Data Allergies Allergy/AdvReac Type Severity Reaction Status Date / Time No Known Allergies Allergy Verified 08/27/24 19:56 Home Medications ?Medication ?Instructions ?Recorded ?Confirmed ?Type No Home Medications 08/28/24 08/28/24 History Current Medications: Active Medications Acetaminophen (Acetaminophen 325 Mg Tablet) 650 mg PO Q4H PRN PRN Reason: Mild Pain (1-3) or Fever Albuterol/Ipratropium (Ipratropium 0.5 Mg/Albuterol Sulfate 2.5 Mg Ampul.Neb 3 Ml) 3 ml INHALATION Q6HRT [facility] Last Admin: 08/30/24 07:38 Dose: 3 ml Empagliflozin (Empagliflozin 10 Mg Tablet) 10 mg PO DAILY [facility] Enoxaparin Sodium (Enoxaparin 40 Mg/0.4 Ml Syringe) 40 mg SUB-Q DAILY [facility] Last Admin: 08/29/24 12:39 Dose: 40 mg Furosemide (Furosemide Inj 40 Mg/4 Ml Vial) 40 mg IV PUSH DAILY [facility] Last Admin: 08/29/24 12:39 Dose: 40 mg Metoprolol Succinate (Metoprolol Succinate Ext Rel 25 Mg Tabcr) 25 mg PO QAM [facility] Perflutren Lipid Microsphere (Perflutren Lipid Microspheres 1.5 Ml Vial Diluted To 10 Ml Total Volume) 0 ml IV PUSH ONCE PRN; Protocol PRN Reason: adequate visualization Stop: 08/31/24 00:57 Sedation/Anesthesia: No previous sedation/anesthesia problems (including family history). [facility] Past Medical History Medical History Hemorrhoids Body mass index (BMI) less than or equal to 19 in adult Abnormal fasting glucose (03/27/22) fasting glucose 105 on 03/27/2022. Fasting glucose 93 with hemoglobin A1c 5.4 on 09/04/2022. fasting glucose 96 with hemoglobin A1c 5.5 on 04/23/2023. Abnormal serum iron level (03/27/22) iron 187 with 61% saturation and ferritin 52 03/27/2022 with hemoglobin 13.8. Iron normal at 72 with 22% saturation and ferritin 37 with hemoglobin 13.4 on 09/04/2022. Iron 60 with 19% saturation and ferritin 43 with hemoglobin 14.0 on 04/23/2023. Newly recognized murmur (04/03/22) Grade 2/6 LOUISE with click. Echocardiogram with no significant valvular problems on 07/08/2022 with decreased systolic function with ejection fraction of 40-45% and grade 1 diastolic dysfunction with mild left ventricular enlargement and moderate left atrial enlargement. Prostate cancer screening PSA 1.07 on 03/27/2022. PSA 1.02 on 04/23/2023. History of colon cancer Right hemicolectomy 10/05/2007. colonoscopy 2018 with polyp with recheck in [address] Sampson. colonoscopy 06/18/2023 with ileocecal anastomosis and internal hemorrhoids with recheck in 5 years Vitamin D deficiency Seasonal allergies Surgical History Surgical History History of colectomy (09/2007) Right hemicolectomy for colon cancer History of colonoscopy with polypectomy colonoscopy with polyp 2018. History of colonoscopy 2006 Family History Family History Mother Cerebrovascular accident Father Carcinoma of colon Social History Social History Social History: Surrogate medical decision maker: Claudiabernardo Brown, spouse. Code status: Full code. Smoking status: Never smoker Alcohol intake: unknown Drinks per week: 2 Alcohol use details: Beer - Occasionally Substance use: unknown Substance use type: does not use Do You Feel Safe in your Home?: Yes Lack of Transportation: No Lack of Food: Never True Current Housing: I Have Housing Concerned About Future Housing: No Difficulty Paying Gas/Electric Bills: No Difficulty Paying for Meds: No Currently Unemployed: No Education: Trade/Vocational Certificate Difficulty w/ Childcare or Family Care: No Living arrangements: with family Spiritual care concerns: No Mod Sed Physical Exam Physical Exam Pre Procedural Exam: Normal: Heart Rate and Heart Rhythm and Variation: Heart Size (rales lower lung dorman) Hours since solid foods: 12 Hours since liquid intake: 12 Mallampati Classification: class II Internal Medicine - PN: Obj Da Vital Signs Vital Signs: Vital Signs - 24 hr 08/29/24 14:05 08/29/24 14:11 08/29/24 16:00 Temperature 36.7 C Pulse Rate 62 67 99 Respiratory Rate 20 20 16 Blood Pressure 137/84 Pulse Oximetry 100 Oxygen Delivery 08/29/24 16:00 08/29/24 16:00 08/29/24 17:27 Temperature Pulse Rate 99 99 99 Respiratory Rate 16 Blood Pressure Pulse Oximetry 100 Oxygen Delivery Room Air 08/29/24 17:47 08/29/24 20:00 08/29/24 20:00 Temperature 36.7 C Pulse Rate 159 H 86 93 Respiratory Rate 16 Blood Pressure 113/76 Pulse Oximetry 100 Oxygen Delivery 08/29/24 20:17 08/29/24 20:35 08/29/24 20:38 Temperature Pulse Rate 88 83 Respiratory Rate 18 Blood Pressure Pulse Oximetry 100 Oxygen Delivery Room Air 08/29/24 20:44 08/29/24 22:00 08/29/24 23:35 Temperature 36.8 C Pulse Rate 79 106 H 91 Respiratory Rate 20 17 Blood Pressure 116/68 Pulse Oximetry 100 Oxygen Delivery 08/30/24 00:00 08/30/24 02:00 08/30/24 03:46 Temperature 36.6 C Pulse Rate 98 75 73 Respiratory Rate 18 Blood Pressure 116/61 Pulse Oximetry 100 Oxygen Delivery 08/30/24 04:00 08/30/24 06:00 08/30/24 07:40 Temperature Pulse Rate 69 84 81 Respiratory Rate 20 Blood Pressure Pulse Oximetry 98 Oxygen Delivery Room Air 08/30/24 07:40 08/30/24 07:49 08/30/24 08:00 Temperature 36.6 C Pulse Rate 81 84 80 Respiratory Rate 20 20 22 H Blood Pressure 95/69 L Pulse Oximetry 99 Oxygen Delivery 08/30/24 08:37 08/30/24 11:18 Temperature 36.3 C L Pulse Rate 87 88 Respiratory Rate 24 H Blood Pressure 112/68 Pulse Oximetry 100 Oxygen Delivery Intake/Output Intake/Output: Intake & Output 08/27/24 08/28/24 08/29/24 08/30/24 23:59 23:59 23:59 23:59 Intake Total 300 1320 Output Total 2800 2600 Balance -2500 -1280 Meds/Results Medications: Active Medications Generic Name Dose Route Start Last Admin Trade Name Freq PRN Reason Stop Dose Admin Acetaminophen 650 mg 08/27/24 22:48 Acetaminophen 325 Mg Tablet PO Q4H PRN Mild Pain (1-3) or Fever Albuterol/Ipratropium 3 ml 08/28/24 02:00 08/30/24 07:38 Ipratropium 0.5 Mg/Albuterol Sulfate 2.5 Mg Ampul.Neb 3 Ml INHALATION 3 ml Q6HRT PUSHPA Administration Empagliflozin 10 mg 08/31/24 09:00 Empagliflozin 10 Mg Tablet PO DAILY PUSHPA Enoxaparin Sodium 40 mg 08/28/24 09:00 08/29/24 12:39 Enoxaparin 40 Mg/0.4 Ml Syringe SUB-Q 40 mg DAILY PUSHPA Administration Furosemide 40 mg 08/29/24 09:00 08/29/24 12:39 Furosemide Inj 40 Mg/4 Ml Vial IV PUSH 40 mg DAILY PUSHPA Administration Metoprolol Succinate 25 mg 08/31/24 09:00 Metoprolol Succinate Ext Rel 25 Mg Tabcr PO QAM PUSHPA Perflutren Lipid Microsphere 0 ml 08/28/24 00:57 Perflutren Lipid Microspheres 1.5 Ml Vial Diluted To 10 Ml Total Volume IV PUSH 08/31/24 00:57 ONCE PRN adequate visualization Protocol Radiology Results: ITS Impressions Chest CTA 08/27/24 21:27 IMPRESSION: No pulmonary embolus. No thoracic aortic dissection. Findings consistent with pulmonary hypertension Large right-sided pleural effusion encompassing nearly the entirety of the right hemithorax. Remaining pulmonary parenchyma demonstrates findings with significant pulmonary edema. Chest X-Ray 08/30/24 06:18 IMPRESSION: 1. Small right pleural effusion. 2. Cardiomegaly. Labs 08/30/24 03:51 08/30/24 03:51 Labs: Laboratory Results - last 24 hr 08/29/24 08/30/24 20:22 03:51 WBC 6.7 RBC 4.29 L Hgb 12.7 L Hct 38.9 L MCV 90.7 MCH 29.6 MCHC 32.6 RDW 14.1 Plt Count 211 MPV 10.5 H Immature Gran % (Auto) 0.1 Neut % (Auto) 60.3 Lymph % (Auto) 19.6 [place] % (Auto) 10.7 H Eos % (Auto) 8.6 H Baso % (Auto) 0.7 Lymph # (Auto) 1.32 [place] # (Auto) 0.7 H Eos # (Auto) 0.6 H Baso # (Auto) 0.1 Abs Immat Gran (auto) 0.01 Absolute Neuts (auto) 4.0 Absolute Nucleated RBC 0.000 Nucleated RBC % 0.0 Sodium 137 Potassium 3.7 Chloride 102 Carbon Dioxide 30 Anion Gap 5 BUN 19 Creatinine 0.93 Estim Creat Clear Calc 56 Estimated GFR > 60 Glucose 95 POC Capillary Glucose 92 Calcium 8.8 Magnesium 1.9 Total Bilirubin 0.9 AST 28 ALT 26 Alkaline Phosphatase 62 Total Protein 7.0 Albumin 3.5 ASA Classification/Sedation ASA Classification/Sedation ASA Class: III Emergent: No Risks: Risks, benefits and alternatives explained and patient/family accepted plan for sedation. Patient re-evaluated immediately prior to sedation.
--- NOTE | 2024-08-30 14:10 | P.PCNCC_ITS ---
Cardiac Cath Procedure Note Date of procedure:: 08/30/24 Performing physician:: CATHETERIZATION LABORATORY REPORT Procedure Date: 08/30/2024 Referring Physician: Dr. Sexton Anesthesia: Versed and Fentanyl were ordered and given in my presence at 1342, procedure ended at 1359. Supervision of nurse monitored moderate sedation with 1mg Versed and 50mcg Fentanyl was provided for 17 minutes. Pre-op Diagnosis: Systolic heart failure Post-op Diagnosis: Systolic heart failure Coronary artery disease Procedure(s): Left heart catheterization with coronary angiography Access Site: Right radial artery Brief History and Clinical Indications: 64-year-old man with remote history of colon cancer presented with shortness of breath found to be in acute decompensated systolic heart failure he is now here to define his coronary anatomy. All risks, benefits and alternatives to left heart catheterization with or without percutaneous coronary intervention was discussed at length with the patient. Risk of complications including but not limited to bleeding, infection, arrhythmia, stroke, worsening kidney function, blood loss, groin hematoma, limb loss, emergency coronary artery bypass grafting, and even were discussed with the patient and all questions were answered. The patient understood and wished to proceed. Time out called, patient name, date of , medical record number, allergies, procedure performed, identify Special Librarian, patient and staff member concurred with accurate data, procedure carried on. Findings: LEFT HEART CATHETERIZATION FINDINGS: 1. Left main: The left main coronary artery is widely patent without any significant obstructive disease. 2. Left anterior descending: The LAD provides 4 diagonal branches. The 3rd diagonal branch has luminal irregularities with slow flow. The remaining diagonal branches are small caliber vessels. The ostial LAD has 95% stenosis. The proximal to mid LAD has diffuse 10-30% stenosis. 3. Left circumflex: The left circumflex artery is a moderate caliber vessel that provides 3 OM branches that an area of trifurcation. OM1 has 95% ostial stenosis. OM2 has 40-50% proximal stenosis. OM3 has 40-50% stenosis proximally. 4. Right coronary artery: The RCA is a large dominant vessel with diffuse 10-20% stenosis. 5. Left ventricle: A. End-diastolic pressure 15 mmHg. B. LV gram deferred. C. No significant gradient across aortic valve on catheter pullback. 6. Opening AO pressure 102/60 and closing AO pressure 113/59 Description of Procedure: Informed consent signed and placed in the chart. 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 Prepped and draped in usual sterile fashion. 2% lidocaine injected subcutaneously in right wrist area. 22-gauge venipuncture catheter used to access the right radial artery with the Seldinger technique. 6-FR slender sheath placed in right radial artery. Nitroglycerin 200mcg, Verapamil 2.5mg, and Heparin 5000U was given intraarterial through the sheath. J wire advanced under fluoroscopy 5F TIG diagnostic catheter engaged Left Main Coronary Artery. 5F JR4 diagnostic catheter engaged Right Coronary Artery Multiple orthogonal angiogram obtained and reviewed 5F Pigtail diagnostic catheter crossed aortic valve to obtain LVEDP, LV angiogram deferred. Hemostasis was achieved by application of TR band. Assessment: Systolic heart failure and obstructive coronary artery disease Post Operative Condition: Stable No significant blood loss Disposition: Floor Plan: Recommend repeating an A1c to assess for diabetes. Continue diuresis. Will discuss outpatient surgical evaluation with patient family. Jd R[facility] Inter[facility] Cardiology
--- NOTE | 2024-08-30 14:38 | PM.IMPN ---
Progress Note: A&P Assessment and Plan (1) Acute exacerbation of congestive heart failure: Code(s): I50.9 - Heart failure, unspecified Status: Acute (2) Pleural effusion on right: Code(s): J90 - Pleural effusion, not elsewhere classified Status: Acute (3) Elevated troponin: Code(s): R79.89 - Other specified abnormal findings of blood chemistry Status: Acute (4) Elevated blood pressure reading: Code(s): R03.0 - Elevated blood-pressure reading, without diagnosis of hypertension Status: Acute Plan This is a very pleasant 63-year-old male with a history of heart failure with moderately reduced ejection fraction estimated at 40 45% with grade 1 diastolic dysfunction noted on echocardiogram in June 2022 and remote history of colon cancer who presented to the emergency department via private vehicle from urgent care for evaluation of shortness of breath. 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 He also endorses a cough which is occasionally productive of yellow phlegm, rare palpitations, and mild orthopnea. He has not noticed any swelling and in fact he has lost some weight. Today he went to urgent care where he was found to have a large right-sided pleural effusion and he was directed to the ED. He denies fever, chills, sweats, chest pain, pleuritic pain, lower extremity edema, calf pain, nausea, and vomiting. In the ED: Vital signs on arrival include a temperature of 97.2?, blood pressure 134/100, pulse 104, respiratory 16, SpO2 97% on room air. Labs were significant for WBC count of 7.3, hemoglobin 13.6, BUN 22, creatinine 1.06, troponin 0.037, proBNP 3520, lipase 308. He tested negative negative for flu, RSV, and COVID. Chest CTA was negative for pulmonary embolus and dissection but did show findings consistent with pulmonary hypertension and large right-sided pleural effusion with pulmonary edema. He has been started on diuretics and is being admitted in this setting for further treatment. He received ceftriaxone and azithromycin in the ED. however low suspicion for pneumonia and hence antibiotic has been discontinued. Acute on chronic diastolic systolic congestive heart failure EF 40-45% with grade 1 diastolic dysfunction June 2022. Repeat echo with EF 20-25%. Patient will start on goal-directed medical therapy as will be ordered by animal care attendant. Does not look overtly volume overloaded will lower down diuresis to once daily. Does have right pleural effusion. Cardiology planning to do cardiac catheterization today. Repeat chest x-ray with very small pleural effusion. Will continue diuresis Atrial flutter intermittent beta-jaimie to start as tolerated. Started on metoprolol tartrate 12.5 mg b.i.d. 08/29/2024. Right-sided pleural effusion large diagnostic and therapeutic right-sided thoracentesis ordered. TSH is pending procalcitonin is 0 repeat chest x-ray with near resolution of right pleural effusion. Will cancel thoracentesis Elevated troponin trended and flat History of colon cancer status post right mohit colectomy and ileocolonic anastomosis DVT prophylaxis Lovenox Code status full code Subjective Date/time seen: 08/30/24 14:38 Interval history: No overnight events. In intermittent atrial flutter with RVR improved after initiation of metoprolol. No events overnight. Telemetry reviewed. He is going for a heart catheterization today. Review of Systems Review of Systems: All systems reviewed & are unremarkable except as noted in HPI and below Exam Narrative: General: Thin, well-developed gentleman sitting up in bed in no acute distress. HEENT: Normocephalic, atraumatic. PERRL, EOMI. Sclera anicteric. Oral mucosa moist. Oropharynx clear. Neck: Supple. No JVD. Respiratory: Respirations are nonlabored he is speaking full sentences. Lung sounds clear to auscultation Cardiovascular: Regular rate and rhythm with S1-S2. Gastrointestinal: Abdomen is soft, nontender, and nondistended with positive bowel sounds. Skin: Warm and dry. No rash or lesions on limited exam. Extremities: No cyanosis, clubbing, or edema. Radial and pedal pulses intact. Neurological: Alert. Cranial nerves 2-12 are grossly intact. No gross focal deficits to casual conversation. Psychiatric: Pleasant and cooperative with normal mood and affect. Judgment and insight intact. Objective Data Vital Signs Vital Signs: Vital Signs - 24 hr 08/29/24 16:00 08/29/24 16:00 08/29/24 16:00 Temperature 98.1 F Pulse Rate 99 99 99 Respiratory Rate 16 16 Blood Pressure 137/84 Pulse Oximetry 100 100 Oxygen Delivery Room Air 08/29/24 17:27 08/29/24 17:47 08/29/24 20:00 Temperature 98.0 F Pulse Rate 99 159 H 86 Respiratory Rate 16 Blood Pressure 113/76 Pulse Oximetry 100 Oxygen Delivery 08/29/24 20:00 08/29/24 20:17 08/29/24 20:35 Temperature Pulse Rate 93 88 83 Respiratory Rate 18 Blood Pressure Pulse Oximetry Oxygen Delivery 08/29/24 20:38 08/29/24 20:44 08/29/24 22:00 Temperature Pulse Rate 79 106 H Respiratory Rate 20 Blood Pressure Pulse Oximetry 100 Oxygen Delivery Room Air 08/29/24 23:35 08/30/24 00:00 08/30/24 02:00 Temperature 98.2 F Pulse Rate 91 98 75 Respiratory Rate 17 Blood Pressure 116/68 Pulse Oximetry 100 Oxygen Delivery 08/30/24 03:46 08/30/24 04:00 08/30/24 06:00 Temperature 97.8 F Pulse Rate 73 69 84 Respiratory Rate 18 Blood Pressure 116/61 Pulse Oximetry 100 Oxygen Delivery 08/30/24 07:40 08/30/24 07:40 08/30/24 07:49 Temperature Pulse Rate 81 81 84 Respiratory Rate 20 20 20 Blood Pressure Pulse Oximetry 98 Oxygen Delivery Room Air 08/30/24 08:00 08/30/24 08:37 08/30/24 11:18 Temperature 97.8 F 97.3 F L Pulse Rate 80 87 88 Respiratory Rate 22 H 24 H Blood Pressure 95/69 L 112/68 Pulse Oximetry 99 100 Oxygen Delivery 08/30/24 14:25 Temperature 98.6 F Pulse Rate 80 Respiratory Rate 12 Blood Pressure 130/82 Pulse Oximetry 100 Oxygen Delivery Room Air Intake/Output Intake/Output: Intake & Output 08/27/24 08/28/24 08/29/24 08/30/24 23:59 23:59 23:59 23:59 Intake Total 300 1320 240 Output Total 2800 2600 Balance -2500 -1280 240 Meds/Results Medications: Active Medications Generic Name Dose Route Start Last Admin Trade Name Freq PRN Reason Stop Dose Admin Acetaminophen 650 mg 08/27/24 22:48 Acetaminophen 325 Mg Tablet PO Q4H PRN Mild Pain (1-3) or Fever Albuterol/Ipratropium 3 ml 08/28/24 02:00 08/30/24 14:17 Ipratropium 0.5 Mg/Albuterol Sulfate 2.5 Mg Ampul.Neb 3 Ml INHALATION Not Given Q6HRT PUSHPA Empagliflozin 10 mg 08/31/24 09:00 Empagliflozin 10 Mg Tablet PO DAILY PUSHPA Enoxaparin Sodium 40 mg 08/28/24 09:00 08/29/24 12:39 Enoxaparin 40 Mg/0.4 Ml Syringe SUB-Q 40 mg DAILY PUSHPA Administration Furosemide 40 mg 08/29/24 09:00 08/29/24 12:39 Furosemide Inj 40 Mg/4 Ml Vial IV PUSH 40 mg DAILY PUSHPA Administration Sodium Chloride 1,000 mls @ 125 mls/hr 08/30/24 14:09 Normal Saline Iv IV CONT 08/30/24 22:08 .Q8H ONE Metoprolol Succinate 25 mg 08/31/24 09:00 Metoprolol Succinate Ext Rel 25 Mg Tabcr PO QAM PUSHPA Perflutren Lipid Microsphere 0 ml 08/28/24 00:57 Perflutren Lipid Microspheres 1.5 Ml Vial Diluted To 10 Ml Total Volume IV PUSH 08/31/24 00:57 ONCE PRN adequate visualization Protocol Radiology Results: ITS Impressions Chest CTA 08/27/24 21:27 IMPRESSION: No pulmonary embolus. No thoracic aortic dissection. Findings consistent with pulmonary hypertension Large right-sided pleural effusion encompassing nearly the entirety of the right hemithorax. Remaining pulmonary parenchyma demonstrates findings with significant pulmonary edema. Chest X-Ray 08/30/24 06:18 IMPRESSION: 1. Small right pleural effusion. 2. Cardiomegaly. Labs Labs: Laboratory Results - last 24 hr 08/29/24 08/30/24 20:22 03:51 WBC 6.7 RBC 4.29 L Hgb 12.7 L Hct 38.9 L MCV 90.7 MCH 29.6 MCHC 32.6 RDW 14.1 Plt Count 211 MPV 10.5 H Immature Gran % (Auto) 0.1 Neut % (Auto) 60.3 Lymph % (Auto) 19.6 [place] % (Auto) 10.7 H Eos % (Auto) 8.6 H Baso % (Auto) 0.7 Lymph # (Auto) 1.32 [place] # (Auto) 0.7 H Eos # (Auto) 0.6 H Baso # (Auto) 0.1 Abs Immat Gran (auto) 0.01 Absolute Neuts (auto) 4.0 Absolute Nucleated RBC 0.000 Nucleated RBC % 0.0 Sodium 137 Potassium 3.7 Chloride 102 Carbon Dioxide 30 Anion Gap 5 BUN 19 Creatinine 0.93 Estim Creat Clear Calc 56 Estimated GFR > 60 Glucose 95 POC Capillary Glucose 92 Calcium 8.8 Magnesium 1.9 Total Bilirubin 0.9 AST 28 ALT 26 Alkaline Phosphatase 62 Total Protein 7.0 Albumin 3.5
[2024-08-30] MEDS: SODIUM CHLORIDE 0.9% IV 1,000 ML 125 ML IV CONT (15:02)
--- NOTE | 2024-08-30 17:05 | SUR.PHASEII ---
6344 large hematoma developed after tr band removed. 10 min constant pressure applied to site. noted hematoma above insertion site pressure held there too. dr arnold called and informed. in to see pt order received to replace tr band to insertion site and add 2nd tr band above 1st tr band with 10ml in both. order received to wait 1hr until letting air out slowly. v/u. pt informed of orders and plan. v/u. rpp 1+ and weak. pt denies any pain or discomfort to site. cap refill unchanged.
[2024-08-31] VITALS (12 sets, daily range): BP systolic 102–117; BP diastolic 57–72; PULSE 69–93; RESP 16–24; TEMP 36.3–36.7; O2SAT 99–100
[2024-08-31 05:01] LABS: Basophils Absolute Auto 0.1 K/mm3 (0.0-0.1); Basophils Percent Auto 1.1 % (0.2-1.2); Eosinophils Absolute Auto 0.8 K/mm3 (0-0.3); Eosinophils Percent Auto 14.2 % (0-4.4); Hematocrit 37.6 % (42.0-52.0); Immature Granulocyte Absolute 0.01 K/mm3 (0.00-0.031); Immature Granulocyte Percent A 0.2 % (0-0.5); Lymphocytes Absolute Auto 1.13 K/mm3 (0.9-3.2); Lymphocytes Percent Auto 20.3 % (18.3-44.2); Mean Corpuscular HGB Conc 31.9 g/dl (32-36); Mean Corpuscular Hemoglobin 29.6 pg (26-34); Mean Corpuscular Volume 92.6 fl (80-100); Mean Platelet Volume 11.1 fl (7.4-10.4); Monocytes Absolute Auto 0.6 K/mm3 (0.1-0.6); Monocytes Percent Auto 11.3 % (2.6-8.5); Neutrophils Absolute Auto 2.9 K/mm3 (1.3-6.7); Neutrophils Percent Auto 52.9 % (45.5-73.1); Platelet Count Result 205 k/mm3 (150-375); Red Blood Count 4.06 M/mm3 (4.6-6.20); Red Cell Distribution Width 14.2 % (11.5-14.5); White Blood Count 5.6 K/mm3 (4.5-10.0)
[2024-08-31 05:10] LABS: Alanine Aminotransferase 23 U/L (6-50); Albumin Level 3.3 g/dL (3.5-5.1); Alkaline Phosphatase 57 U/L (38-126); Anion Gap 5 mmol/L (4-12); Aspartate Amino Transferase 25 U/L (17-59); Bilirubin,Total 0.8 mg/dL (0.2-1.3); Blood Urea Nitrogen 24 mg/dL (9-20); Calcium 8.3 mg/dL (8.4-10.2); Carbon Dioxide 28 mmol/L (22-30); Chloride 105 mmol/L (98-107); Estimated CRCL calculation 60 ml/min; Estimated Glomerular Filt Rate > 60; Glucose 76 mg/dL (65-110); Potassium 3.9 mmol/L (3.4-5.0); Sodium 138 mmol/L (137-145)
[2024-08-31] MEDS: ENOXAPARIN 40 MG/0.4 ML SYRINGE SUB-Q (09:31)
[2024-08-31] MEDS: METOPROLOL SUCCINATE EXT REL 25 MG TABCR PO (09:32)
[2024-08-31] MEDS: EMPAGLIFLOZIN 10 MG TABLET PO (09:32)
[2024-08-31] MEDS: FUROSEMIDE INJ 40 MG/4 ML VIAL IV PUSH (11:03)
[2024-08-31] MEDS: ATORVASTATIN 40 MG TABLET 80 MG PO (12:15)
--- NOTE | 2024-08-31 12:15 | P.PNCA_ITS ---
Progress Note: A&P Assessment and Plan (1) Acute exacerbation of congestive heart failure: Code(s): I50.9 - Heart failure, unspecified Status: Acute Plan 1. Acute heart failure with reduced LVEF of 20-25% per TTE 08/28/2024 2. Coronary artery disease per [facility] 08/30. The ostial LAD has 95% stenosis. The proximal to mid LAD has diffuse 10-30% stenosis. OM1 has 95% ostial stenosis. OM2 has 40-50% proximal stenosis. OM3 has 40-50% stenosis proximally. The RCA is a large dominant vessel with diffuse 10-20% stenosis. 2. Paroxysmal atrial fibrillation / atrial flutter noted on telemetry. TSH level normal. 3. Elevated troponin level. Flat. Not an acute coronary syndrome. 4. Possible bicuspid aortic valve without stenosis/regurgitation, noted on TTE 08/28/2024 PLAN: -[facility] findings as noted above. Referral placed for outpatient CT Surgery, -Stop IV Lasix, transition to PO. -Continue Toprol, Jardiance. Will start low dose Losartan. Further uptitration of heart failure GDMT to be done as outpatient. -Telemetry reveals paroxysmal atrial flutter/atrial fibrillation. This is a new diagnosis for the patient as well. Continue Toprol. [id number] is now 2 given CHF and CAD. Start Eliquis 5mg BID. -Initially, patient declined Life Vest, but he states he would now like it. Life Vest order placed. Recommendations and plan discussed with Hospitalist. Can be discharged home later this afternoon. Will arrange follow up in my office. Subjective Date/time seen: 08/31/24 12:15 Interval history: Reason for visit: CHF HPI: Helen is a 63 year old male with remote history of colon cancer who presented with shortness of breath over past two weeks. No chest pain. Has felt intermittent palpitations as well. Had an echocardiogram done in 2022 that showed mild LV systolic dysfunction. Has not seen a seam presser. Family states they were not aware about that echocardiogram. Workup here shows troponins at 0.037 x 3, NT pro BNP of 3520. Chest CTA with large right-sided pleural effusion encompassing nearly the entirety of the right hemothorax, along with significant pulmonary edema. EKG shows sinus tachycardia, left atrial enlargement, LVH with secondary STTW abnormality. Started on IV Lasix on admission and feeling better now. Off of supplemental oxygen now. Date of service 08/30: No chest pain. Shortness of breath significantly improved. No orthopnea. No lower extremity swelling Date of service 08/31: Feeling well today. Review of Systems Review of Systems: All systems reviewed & are unremarkable except as noted in HPI and below (HPI) Exam Const: General: no acute distress HENMT: Mouth: Yes moist mucous membranes Eyes: General: appearance normal, both eyes and all related structures Sclera: sclerae normal Resp: Effort & Inspection: normal respiratory effort Auscultation: clear to auscultation bilaterally Cardio: Rate: regular rate Rhythm: regular rhythm Heart sounds: no murmurs Skin: General skin exam: normal color Neuro: Speech: normal speech Psych: Mental Status: mental status grossly normal Affect: normal affect Objective Data Vital Signs Vital Signs: Vital Signs - 24 hr 08/30/24 14:25 08/30/24 14:30 08/30/24 14:45 Temperature 37.0 C Pulse Rate 80 80 79 Respiratory Rate 12 15 14 Blood Pressure 130/82 131/90 132/93 H Pulse Oximetry 100 100 100 Oxygen Delivery Room Air Room Air Room Air 08/30/24 15:00 08/30/24 15:16 08/30/24 15:30 Temperature Pulse Rate 77 82 82 Respiratory Rate 16 20 18 Blood Pressure 139/90 132/88 132/89 Pulse Oximetry 100 100 99 Oxygen Delivery Room Air Room Air Room Air 08/30/24 15:45 08/30/24 16:00 08/30/24 16:15 Temperature Pulse Rate 90 85 83 Respiratory Rate 14 16 16 Blood Pressure 122/80 110/66 123/74 Pulse Oximetry Oxygen Delivery Room Air Room Air Room Air 08/30/24 16:30 08/30/24 16:45 08/30/24 17:00 Temperature Pulse Rate 83 82 91 Respiratory Rate 14 13 18 Blood Pressure 122/80 137/84 116/76 Pulse Oximetry 99 Oxygen Delivery Room Air Room Air Room Air 08/30/24 17:00 08/30/24 17:15 08/30/24 17:30 Temperature Pulse Rate 77 81 84 Respiratory Rate 14 15 15 Blood Pressure 133/84 116/72 118/65 Pulse Oximetry Oxygen Delivery Room Air Room Air Room Air 08/30/24 17:45 08/30/24 18:00 08/30/24 18:15 Temperature Pulse Rate 80 80 80 Respiratory Rate 19 19 17 Blood Pressure 126/76 123/79 123/78 Pulse Oximetry 100 100 Oxygen Delivery Room Air Room Air Room Air 08/30/24 18:30 08/30/24 18:45 08/30/24 19:00 Temperature Pulse Rate 81 81 86 Respiratory Rate 17 17 15 Blood Pressure 118/74 123/75 116/76 Pulse Oximetry 100 100 100 Oxygen Delivery Room Air Room Air Room Air 08/30/24 19:15 08/30/24 19:30 08/30/24 19:45 Temperature Pulse Rate 89 93 83 Respiratory Rate 17 18 20 Blood Pressure 117/74 127/83 129/87 Pulse Oximetry 100 100 100 Oxygen Delivery Room Air Room Air Room Air 08/30/24 20:00 08/30/24 20:15 08/30/24 20:30 Temperature Pulse Rate 87 80 81 Respiratory Rate 20 19 20 Blood Pressure 129/81 120/70 125/93 H Pulse Oximetry 100 100 100 Oxygen Delivery Room Air Room Air Room Air 08/30/24 20:45 08/30/24 21:00 08/30/24 21:15 Temperature Pulse Rate 81 82 83 Respiratory Rate 19 20 20 Blood Pressure 129/88 127/83 124/79 Pulse Oximetry 100 100 100 Oxygen Delivery Room Air Room Air 08/30/24 21:30 08/30/24 21:45 08/30/24 22:00 Temperature Pulse Rate 88 85 Respiratory Rate Blood Pressure 115/73 Pulse Oximetry Oxygen Delivery Room Air 08/30/24 22:25 08/31/24 00:00 08/31/24 00:00 Temperature 36.7 C Pulse Rate 91 83 83 Respiratory Rate 24 H Blood Pressure 119/60 117/72 117/72 Pulse Oximetry 100 Oxygen Delivery 08/31/24 00:00 08/31/24 00:00 08/31/24 01:00 Temperature Pulse Rate 81 77 Respiratory Rate Blood Pressure 112/72 Pulse Oximetry Oxygen Delivery Room Air 08/31/24 02:00 08/31/24 02:00 08/31/24 04:00 Temperature 36.6 C Pulse Rate 79 76 76 Respiratory Rate 24 H Blood Pressure 102/63 110/63 Pulse Oximetry 100 Oxygen Delivery 08/31/24 04:00 08/31/24 04:00 08/31/24 06:00 Temperature Pulse Rate 78 71 Respiratory Rate Blood Pressure Pulse Oximetry Oxygen Delivery Room Air 08/31/24 08:00 08/31/24 08:00 08/31/24 09:32 Temperature 36.3 C L Pulse Rate 69 86 78 Respiratory Rate 24 H Blood Pressure 105/57 L Pulse Oximetry 99 Oxygen Delivery 08/31/24 10:00 08/31/24 10:33 08/31/24 12:00 Temperature 36.4 C L Pulse Rate 82 79 81 Respiratory Rate 16 Blood Pressure 106/57 L 116/58 L Pulse Oximetry 100 Oxygen Delivery Intake/Output Intake/Output: Intake & Output 08/28/24 08/29/24 08/30/24 08/31/24 23:59 23:59 23:59 23:59 Intake Total 300 1320 580 490 Output Total 2800 2600 Balance -2500 -1280 580 490 Meds/Results Medications: Active Medications Generic Name Dose Route Start Last Admin Trade Name Freq PRN Reason Stop Dose Admin Acetaminophen 650 mg 08/27/24 22:48 Acetaminophen 325 Mg Tablet PO Q4H PRN Mild Pain (1-3) or Fever Albuterol/Ipratropium 3 ml 08/30/24 14:43 Ipratropium 0.5 Mg/Albuterol Sulfate 2.5 Mg Ampul.Neb 3 Ml INHALATION Q6HRT PRN Shortness of breath Apixaban 5 mg 09/01/24 09:00 Apixaban 5 Mg Tablet PO Q12HR [facility] Aspirin 81 mg 08/31/24 11:30 Aspirin 81 Mg Enteric Tablet PO QAM [facility] Atorvastatin Calcium 80 mg 08/31/24 11:30 Atorvastatin 40 Mg Tablet PO DAILY [facility] Empagliflozin 10 mg 08/31/24 09:00 08/31/24 09:32 Empagliflozin 10 Mg Tablet PO 10 mg DAILY [facility] Administration Enoxaparin Sodium 40 mg 08/28/24 09:00 08/31/24 09:31 Enoxaparin 40 Mg/0.4 Ml Syringe SUB-Q 40 mg DAILY PUSHPA Administration Furosemide 40 mg 09/01/24 09:00 Furosemide 40 Mg Tablet PO DAILY [facility] Losartan Potassium 12.5 mg 09/01/24 09:00 Losartan Potassium 12.5 Mg Tablet PO DAILY [facility] Metoprolol Succinate 25 mg 08/31/24 09:00 08/31/24 09:32 Metoprolol Succinate Ext Rel 25 Mg Tabcr PO 25 mg QAM PUSHPA Administration Radiology Results: ITS Impressions Chest CTA 08/27/24 21:27 IMPRESSION: No pulmonary embolus. No thoracic aortic dissection. Findings consistent with pulmonary hypertension Large right-sided pleural effusion encompassing nearly the entirety of the right hemithorax. Remaining pulmonary parenchyma demonstrates findings with significant pulmonary edema. Chest X-Ray 08/30/24 06:18 IMPRESSION: 1. Small right pleural effusion. 2. Cardiomegaly. Labs Labs: Laboratory Results - last 24 hr 08/31/24 03:41 WBC 5.6 RBC 4.06 L Hgb 12.0 L Hct 37.6 L MCV 92.6 MCH 29.6 MCHC 31.9 L RDW 14.2 Plt Count 205 MPV 11.1 H Immature Gran % (Auto) 0.2 Neut % (Auto) 52.9 Lymph % (Auto) 20.3 [place] % (Auto) 11.3 H Eos % (Auto) 14.2 H Baso % (Auto) 1.1 Lymph # (Auto) 1.13 [place] # (Auto) 0.6 Eos # (Auto) 0.8 H Baso # (Auto) 0.1 Abs Immat Gran (auto) 0.01 Absolute Neuts (auto) 2.9 Absolute Nucleated RBC 0.000 Nucleated RBC % 0.0 Sodium 138 Potassium 3.9 Chloride 105 Carbon Dioxide 28 Anion Gap 5 BUN 24 H Creatinine 0.87 Estim Creat Clear Calc 60 Estimated GFR > 60 Glucose 76 Calcium 8.3 L Magnesium 2.0 Total Bilirubin 0.8 AST 25 ALT 23 Alkaline Phosphatase 57 Total Protein 7.0 Albumin 3.3 L
[2024-08-31] MEDS: ASPIRIN 81 MG ENTERIC TABLET PO (12:16)
[2024-08-31 14:32] LABS: Hemoglobin A1C 5.6 % (<5.7)
--- NOTE | 2024-08-31 14:38 | PM.DS ---
DS: Admitting Diagnosis Discharge Date 08/31/2024 Admitting Diagnosis Shortness of breath DS: Discharge Diagnosis Discharge Diagnosis (1) Acute exacerbation of congestive heart failure: Code(s): I50.9 - Heart failure, unspecified Status: Acute (2) Pleural effusion on right: Code(s): J90 - Pleural effusion, not elsewhere classified Status: Acute (3) Elevated troponin: Code(s): R79.89 - Other specified abnormal findings of blood chemistry Status: Acute (4) Elevated blood pressure reading: Code(s): R03.0 - Elevated blood-pressure reading, without diagnosis of hypertension Status: Acute DS: Summary Hospital Course Hospital Course: This is a very pleasant 63-year-old male with a history of heart failure with moderately reduced ejection fraction estimated at 40 45% with grade 1 diastolic dysfunction noted on echocardiogram in June 2022 and remote history of colon cancer who presented to the emergency department via private vehicle from urgent care for evaluation of shortness of breath. 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 He also endorses a cough which is occasionally productive of yellow phlegm, rare palpitations, and mild orthopnea. He has not noticed any swelling and in fact he has lost some weight. Today he went to urgent care where he was found to have a large right-sided pleural effusion and he was directed to the ED. He denies fever, chills, sweats, chest pain, pleuritic pain, lower extremity edema, calf pain, nausea, and vomiting. In the ED: Vital signs on arrival include a temperature of 97.2?, blood pressure 134/100, pulse 104, respiratory 16, SpO2 97% on room air. Labs were significant for WBC count of 7.3, hemoglobin 13.6, BUN 22, creatinine 1.06, troponin 0.037, proBNP 3520, lipase 308. He tested negative negative for flu, RSV, and COVID. Chest CTA was negative for pulmonary embolus and dissection but did show findings consistent with pulmonary hypertension and large right-sided pleural effusion with pulmonary edema. He has been started on diuretics and is being admitted in this setting for further treatment. He received ceftriaxone and azithromycin in the ED. however low suspicion for pneumonia and hence antibiotic has been discontinued. Acute on chronic diastolic systolic congestive heart failure EF 40-45% with grade 1 diastolic dysfunction June 2022. Repeat echo with EF 20-25%. He was started on IV diuretics. Subsequent follow-up chest x-ray with improved right-sided pleural effusion. He is being started on goal-directed medical therapy. LifeVest with discussed and arranged. He underwent cardiac catheterization on 08/30/2024: Coronary artery disease per [facility] 08/30. The ostial LAD has 95% stenosis. The proximal to mid LAD has diffuse 10-30% stenosis. OM1 has 95% ostial stenosis. OM2 has 40-50% proximal stenosis. OM3 has 40-50% stenosis proximally. The RCA is a large dominant vessel with diffuse 10-20% stenosis. He has been referred for outpatient CT surgery evaluation Atrial flutter intermittent beta-jaimie to start as tolerated. Started on metoprolol tartrate 12.5 mg b.i.d. 08/29/2024. This has been switched to Toprol. Eliquis has been started as well. Right-sided pleural effusion large diagnostic and therapeutic right-sided thoracentesis ordered. TSH is pending procalcitonin is 0 repeat chest x-ray with near resolution of right pleural effusion. Thoracentesis canceled Elevated troponin trended and flat History of colon cancer status post right mohit colectomy and ileocolonic anastomosis DVT prophylaxis Lovenox Code status full code Time Spent with Patient Time attestation: Total time spent providing and/or coordinating discharge services: 40 minutes Exam Narrative: General: Thin, well-developed gentleman sitting up in bed in no acute distress. HEENT: Normocephalic, atraumatic. PERRL, EOMI. Sclera anicteric. Oral mucosa moist. Oropharynx clear. Neck: Supple. No JVD. Respiratory: Respirations are nonlabored he is speaking full sentences. Lung sounds clear to auscultation Cardiovascular: Regular rate and rhythm with S1-S2. Gastrointestinal: Abdomen is soft, nontender, and nondistended with positive bowel sounds. Skin: Warm and dry. No rash or lesions on limited exam. Extremities: No cyanosis, clubbing, or edema. Radial and pedal pulses intact. Neurological: Alert. Cranial nerves 2-12 are grossly intact. No gross focal deficits to casual conversation. Psychiatric: Pleasant and cooperative with normal mood and affect. Judgment and insight intact. DS: Data Data Completed and Pending Completed studies during hospitalization: Exam Type: CA echo doppler color flow Study Info Indications - CHF Complete two-dimensional, color flow and Doppler transthoracic echocardiogram is performed. Summary 1. Left ventricular chamber dimension is moderately enlarged. 2. Left ventricular systolic function is severely reduced, estimated at 20-25%. 3. There is mildly increased left ventricular wall thickness. 4. The left ventricular diastolic function is grade I diastolic dysfunction. 5. Right ventricular chamber dimension is normal. 6. Right ventricular systolic function is normal. 7. Left atrial chamber dimension is moderately enlarged. 8. Right atrial chamber dimension is moderately enlarged. 9. The aortic valve appears to be bicuspid. 10. There is mild mitral valve regurgitation. Left Ventricle Left ventricular chamber dimension is moderately enlarged. Left ventricular systolic function is severely reduced, estimated at 20-25%. There is mildly increased left ventricular wall thickness. The left ventricular diastolic function is grade I diastolic dysfunction. Right Ventricle Right ventricular chamber dimension is normal. Right ventricular systolic function is normal. Left Atria Left atrial chamber dimension is moderately enlarged. Right Atria Right atrial chamber dimension is moderately enlarged. Atrial Septum Intact interatrial septum visualized by color flow imaging. Aortic Valve The aortic valve appears to be bicuspid. There is no aortic valve stenosis. There is no aortic valve regurgitation. There is mild aortic valve calcification. Pulmonic Valve The pulmonic valve is not well visualized. There is trace pulmonic regurgitation. Mitral Valve There is mild mitral valve regurgitation. Tricuspid Valve There is trace tricuspid valve regurgitation. Pericardium/Pleural There is no pericardial effusion. Inferior Vena Cava Normal inferior vena cava with >50% collapse upon inspiration consistent with normal right atrial pressure, 3 mmHg. Aorta The aortic root size at the sinus of Valsalva is normal. Pending studies at discharge: Pending at discharge 08/28/24 00:57 Cytology [PTH] Routine 08/28/24 08:54 Cytology [PTH] Routine Labs on day of discharge: Labs from last 24 hours 08/31/24 08/31/24 03:41 03:38 WBC 5.6 RBC 4.06 L Hgb 12.0 L Hct 37.6 L MCV 92.6 MCH 29.6 MCHC 31.9 L RDW 14.2 Plt Count 205 MPV 11.1 H Immature Gran % (Auto) 0.2 Neut % (Auto) 52.9 Lymph % (Auto) 20.3 Sutter % (Auto) 11.3 H Eos % (Auto) 14.2 H Baso % (Auto) 1.1 Lymph # (Auto) 1.13 Sutter # (Auto) 0.6 Eos # (Auto) 0.8 H Baso # (Auto) 0.1 Abs Immat Gran (auto) 0.01 Absolute Neuts (auto) 2.9 Absolute Nucleated RBC 0.000 Nucleated RBC % 0.0 Sodium 138 Potassium 3.9 Chloride 105 Carbon Dioxide 28 Anion Gap 5 BUN 24 H Creatinine 0.87 Estim Creat Clear Calc 60 Estimated GFR > 60 Glucose 76 Hemoglobin A1c 5.6 Calcium 8.3 L Magnesium 2.0 Total Bilirubin 0.8 AST 25 ALT 23 Alkaline Phosphatase 57 Total Protein 7.0 Albumin 3.3 L Preliminary micro results at discharge 08/27/24 23:14 Blood Culture - Preliminary Blood 08/27/24 23:14 Blood Culture - Preliminary Blood Procedures/Treatments: Cardiac Cath Procedure Note Date of procedure:: 08/30/24 Performing physician:: CATHETERIZATION LABORATORY REPORT Procedure Date: 08/30/2024 Referring Physician: Dr. Sexton Anesthesia: Versed and Fentanyl were ordered and given in my presence at 1342, procedure ended at 1359. Supervision of nurse monitored moderate sedation with 1mg Versed and 50mcg Fentanyl was provided for 17 minutes. Pre-op Diagnosis: Systolic heart failure Post-op Diagnosis: Systolic heart failure Coronary artery disease Procedure(s): Left heart catheterization with coronary angiography Access Site: Right radial artery Brief History and Clinical Indications: 64-year-old man with remote history of colon cancer presented with shortness of breath found to be in acute decompensated systolic heart failure he is now here to define his coronary anatomy. All risks, benefits and alternatives to left heart catheterization with or without percutaneous coronary intervention was discussed at length with the patient. Risk of complications including but not limited to bleeding, infection, arrhythmia, stroke, worsening kidney function, blood loss, groin hematoma, limb loss, emergency coronary artery bypass grafting, and even were discussed with the patient and all questions were answered. The patient understood and wished to proceed. Time out called, patient name, date of , medical record number, allergies, procedure performed, identify Director Facilities Maintenance, patient and staff member concurred with accurate data, procedure carried on. Findings: LEFT HEART CATHETERIZATION FINDINGS: 1. Left main: The left main coronary artery is widely patent without any significant obstructive disease. 2. Left anterior descending: The LAD provides 4 diagonal branches. The 3rd diagonal branch has luminal irregularities with slow flow. The remaining diagonal branches are small caliber vessels. The ostial LAD has 95% stenosis. The proximal to mid LAD has diffuse 10-30% stenosis. 3. Left circumflex: The left circumflex artery is a moderate caliber vessel that provides 3 OM branches that an area of trifurcation. OM1 has 95% ostial stenosis. OM2 has 40-50% proximal stenosis. OM3 has 40-50% stenosis proximally. 4. Right coronary artery: The RCA is a large dominant vessel with diffuse 10-20% stenosis. 5. Left ventricle: A. End-diastolic pressure 15 mmHg. B. LV gram deferred. C. No significant gradient across aortic valve on catheter pullback. 6. Opening AO pressure 102/60 and closing AO pressure 113/59 Description of Procedure: Informed consent signed and placed in the chart. Patient transferred to geophysical laboratory director room. Prepped and draped in usual sterile fashion. 2% lidocaine injected subcutaneously in right wrist area. 22-gauge venipuncture catheter used to access the right radial artery with the Seldinger technique. 6-FR slender sheath placed in right radial artery. Nitroglycerin 200mcg, Verapamil 2.5mg, and Heparin 5000U was given intraarterial through the sheath. J wire advanced under fluoroscopy 5F TIG diagnostic catheter engaged Left Main Coronary Artery. 5F JR4 diagnostic catheter engaged Right Coronary Artery Multiple orthogonal angiogram obtained and reviewed 5F Pigtail diagnostic catheter crossed aortic valve to obtain LVEDP, LV angiogram deferred. Hemostasis was achieved by application of TR band. Assessment: Systolic heart failure and obstructive coronary artery disease Post Operative Condition: Stable No significant blood loss Disposition: Floor Plan: Recommend repeating an A1c to assess for diabetes. Continue diuresis. Will discuss outpatient surgical evaluation with patient family. [facility] Inter[facility] Please be advised this is a medical document. It is intended for [id number] communication. It is written in medical language and may contain unfamiliar abbreviations or verbiage. Medical documents are intended to carry relevant information, facts as evident, and the clinical opinion of the practitioner at the time of the encounter. This report may have been done utilizing a voice recognition system. Attempts have been made to correct errors. However, there may be uncorrected grammatical, spelling, and recognition errors present. The file time of this note does not necessarily represent the time the patient was seen. Imaging Radiologist's impression: ITS Impressions Chest CTA 08/27/24 21:27 IMPRESSION: No pulmonary embolus. No thoracic aortic dissection. Findings consistent with pulmonary hypertension Large right-sided pleural effusion encompassing nearly the entirety of the right hemithorax. Remaining pulmonary parenchyma demonstrates findings with significant pulmonary edema. Chest X-Ray 08/30/24 06:18 IMPRESSION: 1. Small right pleural effusion. 2. Cardiomegaly. Discharge Plan Discharge Attending physician on discharge: Pineda Sexton Consulting providers: Jacqueline Mabry Discharging Clinician: Pineda Sexton Anticipated Discharge Date/Time: 08/31/24 14:42 Patient Disposition: Home, Self-Care Activity: as tolerated Diet: heart healthy Patient Instructions: Antibiotic Form, Furosemide (By mouth), Apixaban (By mouth), Heart Failure (GEN) Patient Language: German Stand Alone Forms: General Discharge Information Follow-up/Referrals: Rambo Coffman MD [Primary Care Provider] - 1 Week Jacqueline Mabry MD [Physician] - 2 Weeks Discharge Medications: New aspirin 81 mg Tablet,Delayed Release (Dr/Ec) 81 mg PO QAM Qty: 30 0RF Eliquis 5 mg Tablet 5 mg PO Q12HR Qty: 60 0RF furosemide 40 mg Tablet 40 mg PO DAILY Qty: 30 0RF atorvastatin 40 mg Tablet 80 mg PO DAILY Qty: 30 0RF Jardiance 10 mg Tablet 10 mg PO DAILY Qty: 30 0RF metoprolol succinate [Toprol XL] 25 mg Tablet Extended Release 24 Hr 25 mg PO QAM Qty: 30 0RF losartan 25 mg tablet 12.5 mg PO DAILY Qty: 15 0RF Other Ambulatory Orders: Complete Blood Count with Diff (Routine) Timeframe: 1 Week Location: Determined by Patient Ordered By: Pineda Sexton Comprehensive Metabolic Panel (Routine) Timeframe: 1 Week Location: Determined by Patient Ordered By: Pineda Sexton Date of admission: 08/28/24 08:27 Primary Care Provider: Rambo Coffman Admitting Provider: Cadence Jacinto Attending physician on admission: Cadence Jacinto Condition: Stable
== END 2024-08-31 19:05 | disposition home or self-care (01) | DRG 287 ==
LOC: ANHED 22:49 → ANHIMU 23:35
PROVIDERS: Internal Medicine; Physician Assistant; Admitting Provider Hospitalist; Emergency Provider Emergency Medicine; PCP Family Medicine; Visit Provider Internal Medicine
PROC: 4A023N7 Measurement of Cardiac Sampling and Pressure, Left Heart, Percutaneous Approach (ICD-10-PCS; CPT 93452; principal; 2024-08-30 11:30)
DX: I50.23 Acute on chronic systolic (congestive) heart failure (principal); I25.10 Atherosclerotic heart disease of native coronary artery without angina pectoris; I48.0 Paroxysmal atrial fibrillation; E55.9 Vitamin D deficiency, unspecified; R03.0 Elevated blood-pressure reading, without diagnosis of hypertension; R01.1 Cardiac murmur, unspecified; Z20.822 Contact with and (suspected) exposure to COVID-19; Z85.038 Personal history of other malignant neoplasm of large intestine
CPT/HCPCS: 36415; 71045; 71275; 80048; 80053; 80061; 81003; 82040; 82465; 82948; 83036; 83605; 83615; 83690; 83735; 83880; 84145; 84155; 84443; 84484; 85025; 85027; 85610; 85730; 87040; 87637; 93005; 93306; 93458; 94640; 96365; 96367; 96374; 96375; 99285; A9270; C1769; C1887; C1894; G0378; J0696; J1644; J1650; J1940; J2003; J2250; J2305; J3010; J7030; J7040; Q9967